=== PATIENT | male | born 1965 | race Caucasian/White ===

== ENCOUNTER 2017-11-28 21:28 | Emergency (ER) | payer OTHER ==
[~2017-11-28] VITALS: Ht 175.3 cm; Wt 154.2 kg
[~2017-11-28 21:28] MED LIST: AMOXICILLIN 50500 MG PO; HYDROCODON-ACE1 EAC7 PO; NOHOMEMEDICATIONS; TRAMADOL 50 MG50 MG PO
[2017-11-28] MEDS ORDERED: [UNRECOGNIZED DRUG - OTHER] (21:34)
[2017-11-28 22:28] LABS: INFLUENZA A ANTIGEN None Detected (None Detect); INFLUENZA B ANTIGEN None Detected (None Detect)
[2017-11-28] MEDS ORDERED: TESSALON PERLE100 MG PO (22:46)
[2017-11-28] MEDS ORDERED: VENTOLIN HFA 1818 GM INH (22:46)
[2017-11-28 23:01] VITALS: BP 170/95
== END 2017-11-28 23:03 | disposition home or self-care (01) ==
LOC: M.ERS 21:28
PROVIDERS: Physician Assistant
DX: J06.9 Acute upper respiratory infection, unspecified (principal); R93.8 Abnormal findings on diagnostic imaging of other specified body structures; F10.99 Alcohol use, unspecified with unspecified alcohol-induced disorder

== ENCOUNTER 2018-12-16 13:30 | Emergency (ER) | payer OTHER ==
[~2018-12-16] VITALS: Ht 175.3 cm; Wt 154.2 kg
[~2018-12-16 13:30] MED LIST changes: +TESSALON PERLE100 MG PO; +VENTOLIN HFA 1818 GM INH; +[UNRECOGNIZED DRUG - OTHER]
[2018-12-16 14:09] LABS: URINE BILIRUBIN NEGATIVE (Negative); URINE BLOOD NEGATIVE (Negative); URINE CLARITY CLEAR; URINE COLOR YELLOW; URINE GLUCOSE-RANDOM NEGATIVE (Negative); URINE KETONES NEGATIVE (Negative); URINE LEUKOCYTES-REFLEX NEGATIVE (Negative); URINE NITRITE-REFLEX NEGATIVE (Negative); URINE PROTEIN NEGATIVE (Negative); URINE UROBILINOGEN 0.2 E.U./dl (0.2-1.0)
[2018-12-16 14:12] LABS: ABSOLUTE BASOPHILS 0.1 thou/uL (0.0-0.2); ABSOLUTE EOSINOPHILS 0.2 thou/uL (0.0-0.7); ABSOLUTE MONOCYTES 0.5 thou/uL (0.0-1.2); ABSOLUTE NEUTROPHILS 5.6 thou/uL (1.6-8.1); BASOPHILS 1.1 %; EOSINOPHILS 2.4 %; HEMATOCRIT 44.7 % (42.0-52.0); HEMOGLOBIN 15.1 gm/dL (14.0-18.0); LYMPHOCYTES 23.9 %; MCH 29.3 pg (26.0-34.0); MCHC 33.9 g/dL (28.0-37.0); MCV 86.7 fL (80.0-100.0); MONOCYTES 6.3 %; MPV 8.4 fl. (7.2-11.1); NUCLEATED RBCS 0 /100WBC; PLATELET COUNT* 267 thou/uL (150-400); POLYS 66.3 %; RBC 5.16 mil/uL (4.50-6.00); RDW-CV 14.9 % (10.5-14.5); WBC 8.4 thou/uL (4.0-11.0)
[2018-12-16 14:19] LABS: ANION GAP 8 mmol/L (7-16); BUN 14 mg/dL (7-18); CALCIUM 9.5 mg/dL (8.5-10.1); CHLORIDE 101 mmol/L (98-107); CO2 28 mmol/L (21-32); GLUCOSE 131 mg/dL (70-99); POTASSIUM 4.1 mmol/L (3.5-5.1); SODIUM 137 mmol/L (136-145)
[2018-12-16 14:27] LABS: ALBUMIN 3.7 g/dL (3.4-5.0); ALKALINE PHOSPHATASE 92 U/L (46-116); LIPASE 105 U/L (73-393); SGOT 17 U/L (15-37); SGPT 41 U/L (30-65); TOTAL BILIRUBIN 0.6 mg/dL (<0.1-1.0); TOTAL PROTEIN 8.4 g/dL (6.4-8.2); TROPONIN-I LEVEL <0.06 ng/mL (<0.06)
[2018-12-16] MEDS ORDERED: ROBAXIN 750 MG750 M1 PO (15:14)
[2018-12-16] MEDS ORDERED: MEDROLDOSEPACK PO (15:14)
[2018-12-16] MEDS ORDERED: NORCO 5-325 TA1 EACH PO (15:14)
[2018-12-16 15:34] VITALS: BP 131/87
--- NOTE | 2018-12-17 13:02 | EKG ---
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
== END 2018-12-16 15:35 | disposition home or self-care (01) ==
LOC: M.ERS 13:30
PROVIDERS: Physician Assistant
DX: R10.9 Unspecified abdominal pain (principal); E66.01 Morbid (severe) obesity due to excess calories; Z68.43 Body mass index [BMI] 50.0-59.9, adult

== ENCOUNTER 2019-04-27 19:40 | Emergency (ER) | payer OTHER ==
[~2019-04-27] VITALS: Ht 175.3 cm; Wt 154.2 kg
[~2019-04-27 19:40] MED LIST changes: +MEDROLDOSEPACK PO; +NORCO 5-325 TA1 EACH PO; +ROBAXIN 750 MG750 M1 PO
[2019-04-27 20:19] LABS: URINE BILIRUBIN NEGATIVE (Negative); URINE BLOOD 3+ (Negative); URINE CLARITY CLEAR; URINE COLOR YELLOW; URINE GLUCOSE-RANDOM NEGATIVE (Negative); URINE KETONES NEGATIVE (Negative); URINE LEUKOCYTES-REFLEX NEGATIVE (Negative); URINE NITRITE-REFLEX NEGATIVE (Negative); URINE PROTEIN NEGATIVE (Negative); URINE UROBILINOGEN 0.2 E.U./dl (0.2-1.0)
[2019-04-27 20:48] LABS: CASTS None Seen /LPF (None Seen); SQUAMOUS 0-3 Few /LPF (0-3)
[2019-04-27 20:49] LABS: BACTERIA-REFLEX None Seen /HPF (None Seen); CRYSTALS None Seen /LPF (None Seen); URINE RBC >20 Many /HPF (0-2); URINE WBC-REFLEX 0-5 Rare /HPF (0-5)
[2019-04-27 21:01] LABS: ABSOLUTE BASOPHILS 0.1 thou/uL (0.0-0.2); ABSOLUTE EOSINOPHILS 0.1 thou/uL (0.0-0.7); ABSOLUTE LYMPHOCYTES 1.5 thou/uL (0.8-5.3); ABSOLUTE NEUTROPHILS 8.4 thou/uL (1.6-8.1); BASOPHILS 0.6 %; EOSINOPHILS 1.3 %; HEMATOCRIT 41.2 % (42.0-52.0); HEMOGLOBIN 13.8 gm/dL (14.0-18.0); LYMPHOCYTES 13.2 %; MCHC 33.5 g/dL (28.0-37.0); MCV 86.8 fL (80.0-100.0); MONOCYTES 9.2 %; MPV 8.5 fl. (7.2-11.1); NUCLEATED RBCS 0 /100WBC; PLATELET COUNT* 223 thou/uL (150-400); POLYS 75.7 %; RBC 4.75 mil/uL (4.50-6.00); RDW-CV 14.8 % (10.5-14.5)
[2019-04-27 21:07] LABS: CALCIUM 8.3 mg/dL (8.5-10.1); CREATININE 1.1 mg/dL (0.6-1.3); POTASSIUM 3.7 mmol/L (3.5-5.1)
[2019-04-27 21:11] LABS: ALBUMIN 3.5 g/dL (3.4-5.0); TOTAL BILIRUBIN 0.8 mg/dL (<0.1-1.0); TOTAL PROTEIN 7.8 g/dL (6.4-8.2)
[2019-04-27] MEDS ORDERED: NAPROSYN500 MG PO ×2 (21:59)
[2019-04-27] MEDS ORDERED: PERCOCET PO ×2 (21:59)
[2019-04-27] MEDS ORDERED: ONDANSETRON HCL4 M2 PO ×2 (21:59)
[2019-04-27] MEDS ORDERED: FLOMAX0.4 MG PO ×2 (21:59)
[2019-04-27 22:35] VITALS: BP 162/78
== END 2019-04-27 22:37 | disposition home or self-care (01) ==
LOC: M.ERS 19:40
PROVIDERS: Nurse Practitioner Family
DX: N20.1 Calculus of ureter (principal); K40.20 Bilateral inguinal hernia, without obstruction or gangrene, not specified as recurrent; E66.01 Morbid (severe) obesity due to excess calories; Z68.43 Body mass index [BMI] 50.0-59.9, adult

== ENCOUNTER 2019-04-29 21:23 | Inpatient (IN) | payer OTHER ==
[~2019-04-29] VITALS: Ht 175.3 cm; Wt 77.1 kg
[~2019-04-29 21:23] MED LIST changes: +FLOMAX0.4 MG PO; +NAPROSYN500 MG PO; +ONDANSETRON HCL4 M2 PO; +PERCOCET PO
[2019-04-29 21:35] VITALS: BP 161/73
[2019-04-29 21:44] LABS: URINE BILIRUBIN NEGATIVE (Negative); URINE BLOOD NEGATIVE (Negative); URINE CLARITY CLEAR; URINE COLOR YELLOW; URINE GLUCOSE-RANDOM NEGATIVE (Negative); URINE KETONES TRACE (Negative); URINE LEUKOCYTES-REFLEX NEGATIVE (Negative); URINE NITRITE-REFLEX NEGATIVE (Negative); URINE PROTEIN NEGATIVE (Negative); URINE SPECIFIC GRAVITY 1.025 (1.005-1.030)
[2019-04-29 21:53] LABS: ABSOLUTE BASOPHILS 0.1 thou/uL (0.0-0.2); ABSOLUTE EOSINOPHILS 0.3 thou/uL (0.0-0.7); ABSOLUTE LYMPHOCYTES 1.5 thou/uL (0.8-5.3); ABSOLUTE MONOCYTES 0.8 thou/uL (0.0-1.2); ABSOLUTE NEUTROPHILS 6.1 thou/uL (1.6-8.1); BASOPHILS 1.1 %; EOSINOPHILS 3.1 %; HEMATOCRIT 38.7 % (42.0-52.0); HEMOGLOBIN 12.9 gm/dL (14.0-18.0); LYMPHOCYTES 17.4 %; MCH 29.1 pg (26.0-34.0); MCHC 33.3 g/dL (28.0-37.0); MCV 87.6 fL (80.0-100.0); MONOCYTES 9.6 %; MPV 8.7 fl. (7.2-11.1); NUCLEATED RBCS 0 /100WBC; PLATELET COUNT* 225 thou/uL (150-400); POLYS 68.8 %; RBC 4.42 mil/uL (4.50-6.00); RDW-CV 14.8 % (10.5-14.5); WBC 8.8 thou/uL (4.0-11.0)
[2019-04-29 22:04] LABS: ANION GAP 9 mmol/L (7-16); BUN 17 mg/dL (7-18); CALCIUM 8.3 mg/dL (8.5-10.1); CHLORIDE 104 mmol/L (98-107); CO2 27 mmol/L (21-32); GLUCOSE 112 mg/dL (70-99); POTASSIUM 4.2 mmol/L (3.5-5.1); SODIUM 140 mmol/L (136-145)
[2019-04-29 22:13] LABS: ALBUMIN 3.5 g/dL (3.4-5.0); ALKALINE PHOSPHATASE 91 U/L (46-116); LIPASE 81 U/L (73-393); SGOT 16 U/L (15-37); SGPT 41 U/L (30-65); TOTAL BILIRUBIN 0.5 mg/dL (<0.1-1.0); TOTAL PROTEIN 7.5 g/dL (6.4-8.2); TROPONIN-I LEVEL <0.06 ng/mL (<0.06)
--- NOTE | 2019-04-29 23:42 | NUR ---
PT MOVED TO ROOM 13 DUE TO BOARDING. HOSPITAL BED PROVIDED FOR PATIENT COMFORT. WILL CONTINUE TO MONITOR.
[2019-04-30 02:42] VITALS: BP 163/91
[2019-04-30 07:17] VITALS: BP 171/74
--- NOTE | 2019-04-30 10:38 | NUR ---
PT GIVEN SANDWICH, PUDDING AND JUICE. REGULAR DIET ORDERED FOR PATIENT. PT IS TO BE NPO AFTER MIDNIGHT.
[2019-04-30 11:13] VITALS: BP 142/71
--- NOTE | 2019-04-30 11:26 | NUR ---
PT GIVEN URINE STRAINER HE STATES HE DOES NOT HAVE ONE HERE IN THE HOSPITAL. TRAINING PROVIDED ON HOW TO STRAIN URINE AND LET NURSE KNOW IF STONE IS SEEN UPON URINATION.
[2019-04-30 14:56] VITALS: BP 184/65
[2019-04-30 15:15] VITALS: BP 147/36
[2019-04-30 20:00] VITALS: BP 163/87
--- NOTE | 2019-04-30 20:54 | NUR ---
PATIENT ADMITTED TO ROOM 109 VIA BED FROM ER. PATIENT'S ASSESSMENT COMPLETED CHARTED. VITALS CHARTED. IV FLUIDS INFUSING. PAIN CONTROLLED BY ORAL AND IV PAIN MEDS. PATIENT UP AD TUCKER, URINE BEING STRAINED. TOLERATING DIET. VSS. TO BE NPO AFTER MIDNIGHT FOR PROCEDURE BY UROLOGY. HOULRY ROUNDING COMPLETED. CALL LIGHT WITHIN REACH. WILL CONTINUE WITH PLAN OF CARE.
[2019-05-01 04:09] LABS: ABSOLUTE EOSINOPHILS 0.3 thou/uL (0.0-0.7); ABSOLUTE LYMPHOCYTES 1.4 thou/uL (0.8-5.3); ABSOLUTE MONOCYTES 0.9 thou/uL (0.0-1.2); ABSOLUTE NEUTROPHILS 7.5 thou/uL (1.6-8.1); BASOPHILS 0.4 %; EOSINOPHILS 2.8 %; HEMOGLOBIN 12.6 gm/dL (14.0-18.0); LYMPHOCYTES 13.4 %; MCH 28.9 pg (26.0-34.0); MCHC 32.4 g/dL (28.0-37.0); MCV 89.3 fL (80.0-100.0); MONOCYTES 9.3 %; NUCLEATED RBCS 0 /100WBC; PLATELET COUNT* 218 thou/uL (150-400); POLYS 74.1 %; RBC 4.37 mil/uL (4.50-6.00); RDW-CV 15.1 % (10.5-14.5); WBC 10.2 thou/uL (4.0-11.0)
[2019-05-01 04:18] LABS: CALCIUM 8.8 mg/dL (8.5-10.1); CREATININE 1.1 mg/dL (0.6-1.3); MAGNESIUM 1.8 mg/dL (1.8-2.4); POTASSIUM 4.3 mmol/L (3.5-5.1)
--- NOTE | 2019-05-01 05:11 | NUR ---
PATIENT HAS REMAINED ALERT AND ORIENTED X 4 THROUGHOUT THE SHIFT AND RESTING AT INTERVALS ON HOURLY ROUNDS. UP INDEPENDENTLY IN THE ROOM. STRAINING URINE. NO STONE. MEDICATED FOR LEFT FLANK PAIN WITH ALTERNATING IV AND PO MEDS TO GOOD EFFECT. CONSENT SIGNED FOR EARLY AM PROCEDURE. NPO AT MIDNIGHT. CONTINUE TO MONITOR.
--- NOTE | 2019-05-01 09:46 | EKG ---
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1965 Requested By: Ag Faith Order Number: [id number] Reading MD: Pan Horta Measurements Intervals [place] Rate: 60 P: 54 [place]: 196 QRS: 45 QRSD: 89 T: 82 QT: 401 QTc: 401 Interpretive Statements Sinus rhythm Compared to ECG 12/16/2018 14:39:05 Atrial premature complex(es) no longer present Electronically Signed On 05-01-2019 9:45:46 CDT by Pan Horta [email or web address] <ELECTRONICALLY SIGNED> By: Pan Horta MD, [facility] 05/01/19 0945 34 34 Pan Horta MD, [facility] /EPI
[2019-05-01 10:15] VITALS: BP 158/79
[2019-05-01 12:11] LABS: BE -1.1 mmol/L (-2 to +3); PCO2 VENOUS 47.3 mmHg (41.0-51.0); PO2 VENOUS 38.5 mmHg (35.0-45.0)
--- NOTE | 2019-05-01 14:08 | NUR ---
SW met with pt and pt to complete initial assessment, introduce self, and SW role. Pt alert, oriented, pleasant. Pt lives at home with ; pt independent with mobility and ADLs. Pt does not anticipate any dc needs at this time.
--- NOTE | 2019-05-01 16:19 | 2DMMODE ---
[place] [address] 2 D/M-MODE ECHOCARDIOGRAM Name: IAN POZO Room: [address] IN [facility]#: [id number] Admission: 04/29/19 Attend Phys: Vaishnavi Jiménez MD Discharge: Date of : 63 Date of Service: 05/01/19 1619 Report #: [id number] THIS REPORT FOR: //name// APPROVED REPORT Study performed: 05/01/2019 13:56:32 EXAM: Comprehensive 2D, Doppler, and color-flow Echocardiogram Patient Location: In-Patient Room #: [facility] Status: routine BSA: 2.59 HR: 57 bpm BP: 158/79 mmHg Rhythm: NSR Other Information Study Quality: Good Indications hypoxia 2D Dimensions IVSd: 12.99 (7-11mm) LVOT Diam: 21.19 (18-24mm) LVDd: 56.28 mm PWd: 12.22 (7-11mm) Ascending Ao: 32.59 (22-36mm) LVDs: 33.12 (25-40mm) Aortic Root: 35.39 mm Volumes Left Atrial Volume (Systole) LA ESV Index: 26.90 mL/m2 Aortic Valve AoV Peak Jewel.: 1.85 m/s AO Peak Gr.: 13.62 mmHg LVOT Max P.57 mmHg AO Mean Gr.: 7.20 mmHg LVOT Mean P.64 mmHg LVOT Max V: 1.63 m/s AO V2 VTI: 35.55 cm LVOT Mean V: 0.97 m/s JORDON (VTI): 2.96 cm2 LVOT V1 VTI: 29.88 cm Mitral Valve E/A Ratio: 1.72 MV Decel. Time: 223.77 ms MV E Max Jewel.: 1.08 m/[place] [address] 2 D/M-MODE ECHOCARDIOGRAM Name: IAN POZO Room: [address] IN ..#: [id number] Admission: 04/29/19 Attend Phys: Vaishnavi Jiménez MD Discharge: Date of : 63 Date of Service: 05/01/19 1619 Report #: [id number] MV PHT: 64.89 ms MVA (PHT): 3.39 cm2 TDI E/Lateral E': 6.35 E/Medial E': 7.20 Medial E' Jewel.: 0.15 m/s Lateral E' Jewel.: 0.17 m/s Pulmonary Valve PV Peak Jewel.: 1.14 m/s PV Peak Gr.: 5.22 mmHg Tricuspid Valve RAP Estimate: 10.00 mmHg TR Peak Gr.: 51.88 mmHg RVSP: 61.00 mmHg PA Pressure: 61.00 mmHg Left Ventricle The left ventricle is normal size. There is normal LV segmental wall motion. There is normal left ventricular wall thickness. Left ventricular systolic function is normal. The left ventricular ejection fraction is within the normal range. LVEF is 55-60%. The left ventricular diastolic function is normal. Right Ventricle The right ventricle is normal size. The right ventricular systolic function is normal. Atria The left atrium size is normal. The right atrium size is normal. Aortic Valve The aortic valve is normal in structure. No aortic regurgitation is present. There is no aortic valvular vegetation. There is no aortic valvular stenosis. Mitral Valve The mitral valve is normal in structure. There is no mitral valve regurgitation noted. There is no evidence of mitral valve vegetations. No evidence of mitral valve stenosis. Tricuspid Valve The tricuspid valve is normal in structure. Trace tricuspid regurgitation. Moderate pulmonary hypertension[place] [address] 2 D/M-MODE ECHOCARDIOGRAM Name: POZOIAN GARCIA Georgette Room: [address] IN [facility]#: [id number] Admission: 04/29/19 Attend Phys: Vaishnavi Jiménez MD Discharge: Date of : 63 Date of Service: 05/01/19 1619 Report #: [id number] The pulmonary valve is normal in structure. There is no pulmonic valvular regurgitation. Great Vessels The aortic root is normal in size. IVC is normal in size and collapses <50% with inspiration. Pericardium There is no pericardial effusion. <Conclusion> LVEF is 55-60%. There is normal LV segmental wall motion. There is no aortic valvular stenosis. No aortic regurgitation is present. Trace tricuspid regurgitation. Moderate pulmonary hypertension. <ELECTRONICALLY SIGNED> By: Pan Horta MD, FACC 05/01/19 1619 1619 1619 Pan Horta MD, FACC /INF
[2019-05-01 16:30] VITALS: BP 152/69
--- NOTE | 2019-05-02 03:57 | NUR ---
ASSESSMENT: PT REMAIN ALERT AND ORIENT TIMES FOUR. UP IN THE CORRIDOR AND IN THE ROOM WITH A STEADY GAIT. PT IS READY TO GO HOME AND DOESN'T WANT TO SPEND ANOTHER NIGHT HERE. HE REFUSES IVF'S AND CAPNOGRAPHY AFTER 15 MINS OF BEING ATTACHED BY RT. PT IS PLEASANT BUT IS READY TO GO HOME. DID C/O FEELING BLOATED AND STAGNANT AIR IN ABD. SIMETHICONE WAS GIVEN. ALSO EXPLAINED THAT SOMETIMES AIR IS PLACED IN THE ABD TO BETTER MOVE THINGS AROUND FOR A BETTER OBSERVATION BY THE DR'S. BLOOD PRESSURE RUNS A BIT ELEVATED. DID NOT WANT HYDRALAZINE PRN.. SLOW PROGRESS TOWARDS DC GOALS. WILL CONTINUE TO MONITOR,.
[2019-05-02 07:40] VITALS: BP 179/88
[2019-05-02 10:34] VITALS: BP 179/88
--- NOTE | 2019-05-02 11:22 | NUR ---
PATIENT AND SPOUSE GIVEN DISCHARGE INSTRUCTIONS AND RETURN TO WORK RELEASE. PATIENT'S IV REMOVED. PATIENT AND SPOUSE VERBALIZED UNDERSTANDING IN REGARDS TO FOLLOW UP APPOINTMENTS. PATIENT AMBULATED OFF NURSING UNIT WITH NURSING STAFF. DISCHARGED TO HOME WITH ALL BELONGINGS.
--- NOTE | 2019-05-03 20:41 | OP ---
[facility] [address] [place] [address] OPERATIVE REPORT Name: IAN POZO Room: [address]#: [id number] Admission: 04/29/19 Attend Phys: Vaishnavi Jiménez MD Discharge: 05/02/19 Date of : 63 Report #: [id number] THIS REPORT FOR: //name// CC: Polo Jiménez DATE OF SERVICE: 05/01/2019 PREOPERATIVE DIAGNOSIS: Left distal ureteral calculus. POSTOPERATIVE DIAGNOSIS: Left distal ureteral calculus. PROCEDURES PERFORMED: 1. Cystoscopy with left retrograde pyelogram. 2. Left ureteroscopy with laser lithotripsy. 3. Basket stone extraction. 4. Left 6 x 26 double-J ureteral stent placement. SURGEON: Ag Faith M.D. ANESTHESIA: General endotracheal. BRIEF HISTORY: The patient is a 54-year-old male who developed left flank and abdominal pain. He presented to the [facility] Emergency Room where noncontrast CT imaging demonstrated the presence of a 5-6 mm left distal ureteral calculus. He was discharged home on medical expulsive therapy, but returned to the ER secondary to persistent pain. Given the above, discussion was undertaken regarding management options and the patient elected ureteroscopy with laser lithotripsy, stone retrieval and stent placement. The risks of the procedure including the risks of bleeding, infection, damage to surrounding structures, need for additional procedures, and anesthetic risks were discussed with the patient and he wished to proceed. PROCEDURE IN DETAIL: The risks and benefits of surgery were discussed with the patient and he wished to proceed. Informed consent was obtained and the patient was transferred to the operating room where he was laid supine on the operating room table. After the induction of adequate general endotracheal anesthesia and the administration of appropriate preoperative antibiotics, the patient's legs were placed in a modified dorsal lithotomy position, taking care to pad all pressure points and avoid any hyperextension or hyperflexion of his joints. The patient's genitalia were prepped and draped in the usual sterile fashion. A timeout was then performed to ensure correct patient and procedure. At this time, a 22-Filipino cystoscope sheath with a 30-degree lens was lubricated and advanced under direct vision and irrigation into the anterior urethra. There were no anterior urethral abnormalities identified. As the prostatic urethra was approached, there was moderate lateral [place] [address] OPERATIVE REPORT Name: IAN POZO Room: [address] IN [facility]#: [id number] Admission: 04/29/19 Attend Phys: Vaishnavi Jiménez MD Discharge: 05/02/19 Date of : 63 Report #: [id number] median lobe hypertrophy. The cystoscope was advanced into the bladder where it was disarticulated and the bladder was drained. Cystoscopy was performed under direct vision and irrigation with both a 30 degree and 70 degree lens. The patient's ureteral orifices were found to be in their normal anatomic location. Systematic panendoscopy revealed no gross bladder wall pathology. There were no papillary bladder tumors or suspicious mucosal lesions identified. At this time, a 5-Filipino Pollack catheter was placed into the patient's left ureteral orifice and a left retrograde pyelogram was performed. Contrast could be seen filling the distal ureter, a distance of approximately 1-2 cm at which point there was a radiopaque filling defect consistent with the calculus previously observed on CT imaging. Contrast progressed beyond the stone and filled a moderately ectatic mid and proximal ureter. At this time, a 0.038 ZIPwire was advanced through the Pollack catheter and beyond the calculus until it was seen to coil within the left collecting system under fluoroscopy. The Pollack catheter and cystoscope were removed and the wire was clamped to the drape as a safety wire. A rigid ureteroscope was then advanced under direct vision and irrigation through the urethra and into the bladder. Under direct vision and pressure flow irrigation, an attempt was made at advancing the ureteroscope into the left ureter. The left UO was somewhat atretic and would not permit advancement across into the distal ureter. As such, the ureteroscope was removed. The inner cannula of an 11/13 navigator access sheath was advanced alone over the wire under fluoroscopic guidance just into the left UO. In this manner a gentle dilation was performed. The inner cannula of the access sheath was removed and the wire was reclamped to the drape. The rigid ureteroscope was then able to be easily advanced across the left UO and into the distal ureter where a smooth stone was encountered. A 365 micron laser fiber was advanced through the ureteroscope and laser lithotripsy was performed on the calculus. The calculus was relatively hard, but did dust nicely. After approximately half the stone had been dusted, the remainder of the stone broke into approximately 4-5 smaller fragments, which were then able to be grasped and removed utilizing a 0 tip nitinol basket. After all stone fragments had been cleared of the distal ureter, the ureteroscope was advanced just beyond the iliac vessels and was withdrawn. There were no basketable stone fragments remaining. Prior to withdrawing the ureteroscope entirely, a retrograde pyelogram was repeated by injecting contrast through the ureteroscope. This demonstrated patency and integrity of the ureter and collecting system and delineated the collecting system for stent placement. The ureteroscope was removed and a 6 x 26 double-J ureteral stent was advanced over the wire and into position using a metal-tipped pusher. The wire was withdrawn, deploying the stent. The left collecting system was relatively decompressed and the stent was seen to take on an S-shaped configuration within the upper pole under fluoroscopic vision. The cystoscope was reinserted into the bladder and a good coil was noted in the bladder. The cystoscope was disarticulated and the bladder was drained. In this manner, the stone fragments, which had been dropped into the bladder were evacuated out and passed off the table for pathologic analysis. The cystoscope was removed. [place] [address] OPERATIVE REPORT Name: IAN POZO Room: [address]#: [id number] Admission: 04/29/19 Attend Phys: Vaishnavi Jiménez MD Discharge: 05/02/19 Date of : 63 Report #: [id number] anesthetized with 2% lidocaine jelly and a B and O suppository was placed per rectum. The patient was then returned to a supine position, awakened from anesthesia, and transferred to the postoperative care unit in stable condition. The patient tolerated the procedure well. COMPLICATIONS: None. ESTIMATED BLOOD LOSS: Minimal. INTRAVENOUS FLUIDS: Crystalloid. DRAINS: Left 6 x 26 double-J ureteral stent. SPECIMENS: Left distal ureteral calculus fragments. FINDINGS: 1. Normal anterior urethra. 2. Moderate bilobar prostatic hyperplasia without significant visual obstruction. 3. No gross bladder wall pathology. No papillary bladder tumors or suspicious mucosal lesions identified. 4. Left retrograde pyelogram demonstrating a left distal ureteral calculus. 5. Left ureteroscopy revealing a left distal ureteral calculus, fragmented with laser lithotripsy and removed. 6. Left 6 x 26 double-J ureteral stent in good position by fluoroscopy and direct vision at the conclusion of the procedure. <ELECTRONICALLY SIGNED> By: Ag Faith MD 05/03/19 2041 0831 0917Ryrisa Faith MD /nt
== END 2019-05-02 11:15 | disposition home or self-care (01) | DRG 659 ==
LOC: M.ERS 21:23 → M.ORTHSURG 22:13 → M.TBA-ER 22:13 → M.ORTHSURG 04-30 15:22
PROVIDERS: Internal Medicine; Physician Assistant; ADMIT Family Medicine
PROC: 0T778DZ Dilation of Left Ureter with Intraluminal Device, Via Natural or Artificial Opening Endoscopic (ICD-10-PCS; principal; 2019-05-01)
PROC: 0TC78ZZ Extirpation of Matter from Left Ureter, Via Natural or Artificial Opening Endoscopic (ICD-10-PCS; principal; 2019-05-01)
PROC: BT1F1ZZ Fluoroscopy of Left Kidney, Ureter and Bladder using Low Osmolar Contrast (ICD-10-PCS; principal; 2019-05-01)
PROC: 5A09357 Assistance with Respiratory Ventilation, Less than 24 Consecutive Hours, Continuous Positive Airway Pressure (ICD-10-PCS; principal; 2019-05-01)
DX: N13.2 Hydronephrosis with renal and ureteral calculous obstruction (principal); J96.01 Acute respiratory failure with hypoxia; J96.02 Acute respiratory failure with hypercapnia; I50.31 Acute diastolic (congestive) heart failure; E66.01 Morbid (severe) obesity due to excess calories; K59.00 Constipation, unspecified; G47.33 Obstructive sleep apnea (adult) (pediatric); I11.0 Hypertensive heart disease with heart failure; Z68.25 Body mass index [BMI] 25.0-25.9, adult

== ENCOUNTER → 2019-06-23 | Outpatient (CLI) | payer OTHER ==
--- NOTE | 2019-06-27 18:22 | SLEEP ---
[address] [address] SLEEP STUDY REPORT Name: IAN POZO Room: [facility]#: [id number] Admission: 06/23/19 Attend Phys: Davey Wood Discharge: Date of : 63 Report #: [id number] THIS REPORT FOR: //name// CC: Polo Mac DO This study has been reviewed in its entirety by a board certified sleep specialist DATE OF SERVICE: 06/23/2019 SLEEP STUDY ATTENDING PHYSICIAN: Vicente Mac DO FINDINGS: The patient is a 54-year-old who weighs 340 pounds with a BMI of 60.2. The patient's [place] score was 12. The patient underwent diagnostic sleep study performed at [facility]. During the night study, the patient spent 408 minutes in bed, but slept for only 78 minutes with a very low sleep efficiency of 19%. Sleep latency was 41.5 minutes with an absent REM sleep. Overall, sleep architecture showed increased stage 1 and stage 2 sleep with absent slow wave and absent REM sleep. During the night study, the patient had 123 apneas including 91 obstructive, 17 mixed and 15 central apneas. The patient had 9 hypopneas. The patient's apnea-hypopnea index for the entire night was 101 per hour. REM sleep was not observed and a supine AHI was 68 per hour. Nocturnal oximetry study revealed an average oxygen saturation of 95% with a lowest of 84%. 2.5 minutes were spent in oxygen saturation of less than 89%. EKG monitoring revealed an average heart rate of 51 beats per minute. No sustained arrhythmias observed. PLMS were seen at an index of 1. So at an index of 90 per hour and 23 per hour caused EEG arousals. Due to limited sleep of 78%. There was not enough time to initiate CPAP. IMPRESSION: 1. Severe sleep apnea-hypopnea syndrome at an AHI of 101 per hour. 2. Very poor sleep architecture with significantly reduced sleep efficiency of 19%. The patient only slept 78 minutes. There was sleep onset [place] [address] SLEEP STUDY REPORT Name: IAN POZO Room: [facility]#: [id number] Admission: 06/23/19 Attend Phys: Davey Wood Discharge: Date of : 63 Report #: [id number] 3. No significant nocturnal hypoxia. 4. Severe periodic limb movements of sleep. RECOMMENDATIONS: 1. The patient should return to the sleep lab for CPAP titration. 2. The patient's insomnia should be further evaluated and treated. 3. Once the patient is optimally treated with CPAP, then follow up in 4-6 weeks to assess compliance with CPAP and to document clinical improvement. 4. Weight loss is strongly advised. 5. Avoid SHERIFF SERGEANT depressants. 6. Cautioned regarding driving or operating heavy machinery until symptoms of sleep apnea resolve with the use of CPAP. 7. PLMS can be treated with dopaminergic agonist agents. The patient should also be further evaluated for symptoms of restless legs during the day. <ELECTRONICALLY SIGNED> By: Serjio Blandon MD 06/27/19 1822 1726 1805Asolomon Blandon MD /nt
== END ==
LOC: M.SLEEPLAB 20:55
DX: G47.33 Obstructive sleep apnea (adult) (pediatric) (principal); G47.30 Sleep apnea, unspecified; E66.01 Morbid (severe) obesity due to excess calories; Z68.43 Body mass index [BMI] 50.0-59.9, adult; I11.0 Hypertensive heart disease with heart failure; I50.30 Unspecified diastolic (congestive) heart failure

== ENCOUNTER 2019-07-10 20:11 | Emergency (ER) | payer OTHER ==
[~2019-07-10] VITALS: Ht 175.3 cm; Wt 155.1 kg
[2019-07-10] MEDS ORDERED: ZESTRIL5 MG PO (20:21)
[2019-07-10] MEDS ORDERED: MEDROLDOSEPACK PO (21:16)
[2019-07-10] MEDS ORDERED: VENTOLIN HFA 1818 GM INH (21:16)
[2019-07-10] MEDS ORDERED: TESSALON PERLE100 MG PO (21:16)
[2019-07-10] MEDS ORDERED: AZITHROMYCIN500 MG PO (21:16)
[2019-07-10 21:27] VITALS: BP 146/67
== END 2019-07-10 21:29 | disposition home or self-care (01) ==
LOC: M.ERS 20:11
DX: J20.9 Acute bronchitis, unspecified (principal); H65.01 Acute serous otitis media, right ear; I10 Essential (primary) hypertension; G47.30 Sleep apnea, unspecified; E66.01 Morbid (severe) obesity due to excess calories; Z68.43 Body mass index [BMI] 50.0-59.9, adult; Z98.890 Other specified postprocedural states; Z87.442 Personal history of urinary calculi

== ENCOUNTER 2020-04-26 15:08 | Emergency (ER) | payer OTHER ==
[~2020-04-26] VITALS: Ht 175.3 cm; Wt 158.8 kg
[~2020-04-26 15:08] MED LIST changes: +AZITHROMYCIN500 MG PO; +ZESTRIL5 MG PO
[2020-04-26 15:48] LABS: URINE BILIRUBIN NEGATIVE (Negative); URINE BLOOD NEGATIVE (Negative); URINE CLARITY CLEAR; URINE COLOR YELLOW; URINE GLUCOSE-RANDOM TRACE (Negative); URINE KETONES NEGATIVE (Negative); URINE LEUKOCYTES-REFLEX NEGATIVE (Negative); URINE NITRITE-REFLEX NEGATIVE (Negative); URINE PROTEIN NEGATIVE (Negative)
[2020-04-26 16:03] LABS: ABSOLUTE LYMPHOCYTES 1.2 thou/uL (0.8-5.3); MPV 8.5 fl. (7.2-11.1); POLYS 73.1 %
[2020-04-26 16:05] LABS: ABSOLUTE BASOPHILS 0.1 thou/uL (0.0-0.2); ABSOLUTE EOSINOPHILS 0.2 thou/uL (0.0-0.7); ABSOLUTE MONOCYTES 0.5 thou/uL (0.0-1.2); ABSOLUTE NEUTROPHILS 5.4 thou/uL (1.6-8.1); BASOPHILS 1.3 %; CREATININE 0.9 mg/dL (0.6-1.3); EOSINOPHILS 2.5 %; HEMATOCRIT 38.8 % (42.0-52.0); HEMOGLOBIN 13.3 gm/dL (14.0-18.0); LYMPHOCYTES 15.9 %; MCH 29.5 pg (26.0-34.0); MCHC 34.2 g/dL (28.0-37.0); MCV 86.1 fL (80.0-100.0); MONOCYTES 7.2 %; NUCLEATED RBCS 0 /100WBC; PLATELET COUNT* 235 thou/uL (150-400); POTASSIUM 3.9 mmol/L (3.5-5.1); RDW-CV 15.1 % (10.5-14.5); WBC 7.4 thou/uL (4.0-11.0)
[2020-04-26 16:09] LABS: ALBUMIN 3.1 g/dL (3.4-5.0); TOTAL BILIRUBIN 0.5 mg/dL (<0.1-1.0); TOTAL PROTEIN 7.3 g/dL (6.4-8.2)
[2020-04-26] MEDS ORDERED: IBUPROFEN 800800 M1 PO (16:40)
[2020-04-26] MEDS ORDERED: NORCO 5-325 TA1 EAC1 PO (16:40)
[2020-04-26 16:48] VITALS: BP 176/86
--- NOTE | 2020-04-28 08:37 | EKG ---
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: [facility] : 1965 Requested By: Kenna Streeter Order Number: [id number] MD: Bon Jules Measurements Intervals [place] Rate: 64 P: 44 CT: 196 QRS: 44 QRSD: 87 T: 79 QT: 387 QTc: 400 Interpretive Statements Sinus rhythm Baseline wander in lead(s) V1,V2 Compared to ECG 04/30/2019 22:35:11 No significant changes Electronically Signed On 04-28-2020 8:37:17 CDT by Bon Jules [email or web address] <ELECTRONICALLY SIGNED> By: Bon Jules MD, [facility] 04/28/20 0837 1555 1555 Bon Jules MD, [facility] /EPI
== END 2020-04-26 16:49 | disposition home or self-care (01) ==
LOC: M.ERS 15:08
PROVIDERS: Nurse Practitioner Family
DX: N20.0 Calculus of kidney (principal); G47.30 Sleep apnea, unspecified; E66.01 Morbid (severe) obesity due to excess calories; Z68.43 Body mass index [BMI] 50.0-59.9, adult; Z87.442 Personal history of urinary calculi

== ENCOUNTER 2020-05-01 15:01 | Emergency (ER) | payer OTHER ==
[~2020-05-01] VITALS: Ht 175.3 cm; Wt 158.8 kg
[~2020-05-01 15:01] MED LIST changes: +IBUPROFEN 800800 M1 PO; +NORCO 5-325 TA1 EAC1 PO
[2020-05-01] MEDS ORDERED: NORCO 5-325 TA1 EAC1 PO (16:08)
[2020-05-01] MEDS ORDERED: IBUPROFEN 800800 M1 PO (16:08)
[2020-05-01 16:43] VITALS: BP 116/51
== END 2020-05-01 16:44 | disposition home or self-care (01) ==
LOC: M.ERS 15:01
DX: S20.211A Contusion of right front wall of thorax, initial encounter (principal); E66.01 Morbid (severe) obesity due to excess calories; G47.30 Sleep apnea, unspecified; I10 Essential (primary) hypertension; Z79.899 Other long term (current) drug therapy; Z68.43 Body mass index [BMI] 50.0-59.9, adult; X50.0XXA Overexertion from strenuous movement or load, initial encounter; Y93.89 Activity, other specified; Y92.89 Other specified places as the place of occurrence of the external cause; Y99.8 Other external cause status

== ENCOUNTER 2020-06-28 13:34 | Emergency (ER) | payer OTHER | END 2020-06-28 14:23 | disposition left against medical advice (07) | LOC: M.ERS 13:34 | DX: Z53.21 Procedure and treatment not carried out due to patient leaving prior to being seen by health care provider (principal) ==

== ENCOUNTER 2020-07-19 13:39 | Observation (INO) | payer OTHER ==
[~2020-07-19] VITALS: Ht 175.3 cm; Wt 154.2 kg
[2020-07-19] MEDS ORDERED: METFORMIN HCL500 M3 PO (13:52)
[2020-07-19] MEDS ORDERED: PRINIVIL40 MG PO (13:53)
[2020-07-19 15:40] LABS: ABSOLUTE BASOPHILS 0.1 thou/uL (0.0-0.2); ABSOLUTE EOSINOPHILS 0.2 thou/uL (0.0-0.7); ABSOLUTE LYMPHOCYTES 1.5 thou/uL (0.8-5.3); ABSOLUTE MONOCYTES 0.5 thou/uL (0.0-1.2); ABSOLUTE NEUTROPHILS 5.3 thou/uL (1.6-8.1); BASOPHILS 0.7 %; EOSINOPHILS 2.4 %; HEMATOCRIT 41.2 % (42.0-52.0); HEMOGLOBIN 14.1 gm/dL (14.0-18.0); LYMPHOCYTES 20.1 %; MCH 29.3 pg (26.0-34.0); MCHC 34.3 g/dL (28.0-37.0); MCV 85.5 fL (80.0-100.0); MPV 8.2 fl. (7.2-11.1); NUCLEATED RBCS 0 /100WBC; PLATELET COUNT* 232 thou/uL (150-400); POLYS 69.8 %; RBC 4.82 mil/uL (4.50-6.00); RDW-CV 15.7 % (10.5-14.5); WBC 7.6 thou/uL (4.0-11.0)
[2020-07-19 15:50] LABS: CALCIUM 8.1 mg/dL (8.5-10.1); CREATININE 0.9 mg/dL (0.6-1.3); POTASSIUM 4.3 mmol/L (3.5-5.1)
[2020-07-19 15:56] LABS: PROTIME 10.5 Seconds (9.20-11.50)
[2020-07-19 16:02] LABS: ALBUMIN 3.4 g/dL (3.4-5.0); CK-MB MASS 2.5 ng/mL (<0.5-3.6); MAGNESIUM 1.9 mg/dL (1.8-2.4); TOTAL BILIRUBIN 0.5 mg/dL (<0.1-1.0)
[2020-07-19 17:15] VITALS: BP 152/70
--- NOTE | 2020-07-19 17:22 | EKG ---
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
[2020-07-19 17:45] VITALS: BP 133/58
== END 2020-07-19 21:00 | disposition left against medical advice (07) ==
LOC: M.ERS 13:39 → M.TBA-ER 15:55 → M.2W 15:55
PROVIDERS: Family Medicine; ADMIT Internal Medicine; ATTEND Internal Medicine
DX: U07.1 COVID-19 (principal); R07.89 Other chest pain; I10 Essential (primary) hypertension; G47.30 Sleep apnea, unspecified; E66.01 Morbid (severe) obesity due to excess calories; Z68.43 Body mass index [BMI] 50.0-59.9, adult; Z87.442 Personal history of urinary calculi; Z79.899 Other long term (current) drug therapy

== ENCOUNTER 2020-08-08 00:04 | Emergency (ER) | payer OTHER ==
[~2020-08-08] VITALS: Ht 175.3 cm; Wt 158.8 kg
[~2020-08-08 00:04] MED LIST changes: +METFORMIN HCL500 M3 PO; +PRINIVIL40 MG PO
[2020-08-08 00:23] LABS: URINE BILIRUBIN NEGATIVE (Negative); URINE BLOOD NEGATIVE (Negative); URINE CLARITY CLEAR; URINE COLOR YELLOW; URINE GLUCOSE-RANDOM NEGATIVE (Negative); URINE KETONES TRACE (Negative); URINE LEUKOCYTES-REFLEX NEGATIVE (Negative); URINE NITRITE-REFLEX NEGATIVE (Negative); URINE PROTEIN NEGATIVE (Negative); URINE SPECIFIC GRAVITY 1.025 (1.005-1.030)
[2020-08-08 00:35] LABS: ABSOLUTE BASOPHILS 0.1 thou/uL (0.0-0.2); ABSOLUTE EOSINOPHILS 0.3 thou/uL (0.0-0.7); ABSOLUTE LYMPHOCYTES 2.1 thou/uL (0.8-5.3); ABSOLUTE MONOCYTES 0.8 thou/uL (0.0-1.2); ABSOLUTE NEUTROPHILS 5.5 thou/uL (1.6-8.1); BASOPHILS 1.2 %; EOSINOPHILS 3.2 %; HEMATOCRIT 40.3 % (42.0-52.0); HEMOGLOBIN 13.7 gm/dL (14.0-18.0); LYMPHOCYTES 23.8 %; MCH 29.1 pg (26.0-34.0); MCHC 33.9 g/dL (28.0-37.0); MCV 85.9 fL (80.0-100.0); MONOCYTES 9.3 %; MPV 8.4 fl. (7.2-11.1); NUCLEATED RBCS 0 /100WBC; PLATELET COUNT* 250 thou/uL (150-400); POLYS 62.5 %; RDW-CV 15.8 % (10.5-14.5); WBC 8.7 thou/uL (4.0-11.0)
[2020-08-08] MEDS ORDERED: FLEXERIL PO (00:35)
[2020-08-08] MEDS ORDERED: NORCO 5-325 TA1 EAC2 PO (00:35)
[2020-08-08 00:41] LABS: CALCIUM 8.5 mg/dL (8.5-10.1); CREATININE 1.1 mg/dL (0.6-1.3); POTASSIUM 4.1 mmol/L (3.5-5.1)
[2020-08-08 00:42] LABS: ALBUMIN 3.3 g/dL (3.4-5.0)
[2020-08-08 00:56] LABS: TOTAL BILIRUBIN 0.4 mg/dL (<0.1-1.0); TOTAL PROTEIN 7.8 g/dL (6.4-8.2)
[2020-08-08 01:44] VITALS: BP 136/89
== END 2020-08-08 01:45 | disposition home or self-care (01) ==
LOC: M.ERS 00:04
PROVIDERS: Family Medicine
DX: M54.5 Low back pain (principal); E66.01 Morbid (severe) obesity due to excess calories; Z87.442 Personal history of urinary calculi; Z79.899 Other long term (current) drug therapy

== ENCOUNTER 2020-10-20 21:37 | Emergency (ER) | payer OTHER ==
[~2020-10-20] VITALS: Ht 175.3 cm; Wt 158.8 kg
[~2020-10-20 21:37] MED LIST changes: +FLEXERIL PO; +NORCO 5-325 TA1 EAC2 PO
[2020-10-20] MEDS ORDERED: OZEMPIC0.25 MG/0. SQ (21:48)
[2020-10-20 22:04] LABS: URINE BILIRUBIN NEGATIVE (Negative); URINE BLOOD NEGATIVE (Negative); URINE CLARITY CLEAR; URINE COLOR YELLOW; URINE GLUCOSE-RANDOM NEGATIVE (Negative); URINE KETONES TRACE (Negative); URINE LEUKOCYTES-REFLEX NEGATIVE (Negative); URINE NITRITE-REFLEX NEGATIVE (Negative); URINE PROTEIN NEGATIVE (Negative); URINE SPECIFIC GRAVITY >= 1.030 (1.005-1.030)
[2020-10-20 22:34] LABS: ABSOLUTE BASOPHILS 0.1 thou/uL (0.0-0.2); ABSOLUTE EOSINOPHILS 0.4 thou/uL (0.0-0.7); ABSOLUTE LYMPHOCYTES 1.7 thou/uL (0.8-5.3); ABSOLUTE MONOCYTES 0.6 thou/uL (0.0-1.2); ABSOLUTE NEUTROPHILS 6.1 thou/uL (1.6-8.1); BASOPHILS 1.4 %; EOSINOPHILS 4.2 %; HEMATOCRIT 42.5 % (42.0-52.0); HEMOGLOBIN 14.4 gm/dL (14.0-18.0); MCH 29.3 pg (26.0-34.0); MCV 86.2 fL (80.0-100.0); MONOCYTES 6.7 %; MPV 8.5 fl. (7.2-11.1); NUCLEATED RBCS 0 /100WBC; PLATELET COUNT* 250 thou/uL (150-400); POLYS 68.7 %; RBC 4.93 mil/uL (4.50-6.00); RDW-CV 15.4 % (10.5-14.5); WBC 8.8 thou/uL (4.0-11.0)
[2020-10-20 22:41] LABS: CALCIUM 8.3 mg/dL (8.5-10.1); CREATININE 0.9 mg/dL (0.6-1.3); POTASSIUM 3.9 mmol/L (3.5-5.1)
[2020-10-20 22:49] LABS: AMP/METHAMP Negative (Negative); BARBITURATES Negative (Negative); BENZODIAZEPINES Negative (Negative); COCAINE Negative (Negative); METHADONE Negative (Negative); OPIATES Negative (Negative); PCP Negative (Negative); THC POSITIVE (Negative)
[2020-10-21] MEDS ORDERED: FLEXERIL PO (00:14)
[2020-10-21] MEDS ORDERED: HYDROCODON-ACE1 EAC8 PO (00:14)
[2020-10-21 00:30] VITALS: BP 151/68
== END 2020-10-21 00:30 | disposition home or self-care (01) ==
LOC: M.ERS 21:37
PROVIDERS: Emergency Medicine
DX: M54.5 Low back pain (principal); G47.30 Sleep apnea, unspecified; E66.01 Morbid (severe) obesity due to excess calories; Z68.43 Body mass index [BMI] 50.0-59.9, adult; Z87.442 Personal history of urinary calculi; Z79.899 Other long term (current) drug therapy

== ENCOUNTER 2020-11-15 13:57 | Emergency (ER) | payer OTHER ==
[~2020-11-15] VITALS: Ht 175.3 cm; Wt 154.2 kg
[~2020-11-15 13:57] MED LIST changes: +HYDROCODON-ACE1 EAC8 PO; +OZEMPIC0.25 MG/0. SQ
[2020-11-15 14:24] LABS: URINE BILIRUBIN NEGATIVE (Negative); URINE BLOOD NEGATIVE (Negative); URINE CLARITY CLEAR; URINE COLOR YELLOW; URINE GLUCOSE-RANDOM NEGATIVE (Negative); URINE KETONES NEGATIVE (Negative); URINE LEUKOCYTES-REFLEX NEGATIVE (Negative); URINE NITRITE-REFLEX NEGATIVE (Negative); URINE PROTEIN NEGATIVE (Negative); URINE SPECIFIC GRAVITY 1.025 (1.005-1.030)
[2020-11-15] MEDS ORDERED: HYDROCODON-ACE1 EAC7 PO (14:43)
[2020-11-15] MEDS ORDERED: FLEXERIL PO (14:43)
[2020-11-15 15:01] VITALS: BP 178/87
== END 2020-11-15 15:02 | disposition home or self-care (01) ==
LOC: M.ERS 13:57
PROVIDERS: Family Medicine
DX: M54.9 Dorsalgia, unspecified (principal); E11.9 Type 2 diabetes mellitus without complications; I10 Essential (primary) hypertension; Z79.899 Other long term (current) drug therapy

== ENCOUNTER 2020-12-30 13:38 | Emergency (ER) | payer OTHER ==
[~2020-12-30] VITALS: Ht 175.3 cm; Wt 163.3 kg
[2020-12-30] MEDS ORDERED: HYDROCODON-ACE1 EAC7 PO (14:28)
[2020-12-30 15:12] VITALS: BP 184/91
== END 2020-12-30 15:13 | disposition home or self-care (01) ==
LOC: M.ERS 13:38
DX: M25.561 Pain in right knee (principal); M25.562 Pain in left knee; G47.30 Sleep apnea, unspecified; E11.9 Type 2 diabetes mellitus without complications; E66.01 Morbid (severe) obesity due to excess calories; Z68.43 Body mass index [BMI] 50.0-59.9, adult; Z87.442 Personal history of urinary calculi

== ENCOUNTER 2021-01-13 13:28 | Emergency (ER) | payer OTHER ==
[~2021-01-13] VITALS: Ht 152.4 cm; Wt 163.3 kg
[2021-01-13] MEDS ORDERED: LISINOPRIL20 MG PO (13:36)
[2021-01-13 13:58] LABS: ABSOLUTE EOSINOPHILS 0.2 thou/uL (0.0-0.7); ABSOLUTE LYMPHOCYTES 1.5 thou/uL (0.8-5.3); ABSOLUTE MONOCYTES 0.6 thou/uL (0.0-1.2); ABSOLUTE NEUTROPHILS 5.1 thou/uL (1.6-8.1); BASOPHILS 0.2 %; HEMATOCRIT 39.4 % (42.0-52.0); HEMOGLOBIN 13.1 gm/dL (14.0-18.0); LYMPHOCYTES 19.8 %; MCH 28.6 pg (26.0-34.0); MCHC 33.3 g/dL (28.0-37.0); MCV 85.7 fL (80.0-100.0); MPV 8.5 fl. (7.2-11.1); NUCLEATED RBCS 0 /100WBC; PLATELET COUNT* 223 thou/uL (150-400); RBC 4.61 mil/uL (4.50-6.00); RDW-CV 15.2 % (10.5-14.5); WBC 7.4 thou/uL (4.0-11.0)
[2021-01-13 14:05] LABS: CREATININE 0.8 mg/dL (0.6-1.3)
[2021-01-13 14:07] LABS: APTT 24.2 Seconds (25.0-31.3); INR 0.9; PROTIME 10.1 Seconds (9.20-11.50)
[2021-01-13 14:17] LABS: ALBUMIN 3.2 g/dL (3.4-5.0); MAGNESIUM 1.9 mg/dL (1.8-2.4); TOTAL BILIRUBIN 0.4 mg/dL (<0.1-1.0); TOTAL PROTEIN 7.5 g/dL (6.4-8.2)
--- NOTE | 2021-01-13 15:17 | EKG ---
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 : 1965 Requested By: Gil Dudley Order Number: [id number] MD: Garrett Feliciano Measurements Intervals [place] Rate: 75 P: 24 MT: 210 QRS: 54 QRSD: 91 T: 58 QT: 386 QTc: 432 Interpretive Statements Sinus rhythm with atrial bigeminy Prolonged MT interval Baseline wander in lead(s) V2 Compared to ECG 07/19/2020 13:49:22 First degree AV block now present Atrial bigeminy is noted Electronically Signed On 01-13-2021 15:17:20 REGULATION SUPERVISOR by Garrett Feliicano [email or web address] <ELECTRONICALLY SIGNED> By: Garrett Feliciano MD, [facility] 01/13/21 1517 1333 1333 Garrett Feliciano MD, [facility] /EPI
[2021-01-13 16:07] VITALS: BP 156/89
== END 2021-01-13 16:07 | disposition home or self-care (01) ==
LOC: M.ERS 13:28
PROVIDERS: Family Medicine
DX: R07.89 Other chest pain (principal); E11.9 Type 2 diabetes mellitus without complications; G47.30 Sleep apnea, unspecified; E66.01 Morbid (severe) obesity due to excess calories; Z68.45 Body mass index [BMI] 70 or greater, adult; Z87.442 Personal history of urinary calculi

== ENCOUNTER 2021-02-08 13:33 | Emergency (ER) | payer OTHER ==
[~2021-02-08] VITALS: Ht 175.3 cm; Wt 154.2 kg
[~2021-02-08 13:33] MED LIST changes: +LISINOPRIL20 MG PO
[2021-02-08] MEDS ORDERED: OZEMPIC0.25 MG/0. SUBQ (13:51)
[2021-02-08 13:53] LABS: URINE BILIRUBIN NEGATIVE (Negative); URINE BLOOD NEGATIVE (Negative); URINE CLARITY CLEAR; URINE COLOR YELLOW; URINE GLUCOSE-RANDOM NEGATIVE (Negative); URINE KETONES NEGATIVE (Negative); URINE LEUKOCYTES-REFLEX NEGATIVE (Negative); URINE NITRITE-REFLEX NEGATIVE (Negative); URINE PROTEIN NEGATIVE (Negative); URINE SPECIFIC GRAVITY 1.025 (1.005-1.030); URINE UROBILINOGEN 0.2 E.U./dl (0.2-1.0)
[2021-02-08 14:09] LABS: ABSOLUTE BASOPHILS 0.1 thou/uL (0.0-0.2); ABSOLUTE EOSINOPHILS 0.2 thou/uL (0.0-0.7); ABSOLUTE LYMPHOCYTES 1.3 thou/uL (0.8-5.3); ABSOLUTE MONOCYTES 0.5 thou/uL (0.0-1.2); ABSOLUTE NEUTROPHILS 5.3 thou/uL (1.6-8.1); EOSINOPHILS 2.5 %; HEMOGLOBIN 13.9 gm/dL (14.0-18.0); LYMPHOCYTES 17.8 %; MCH 28.5 pg (26.0-34.0); MCHC 33.1 g/dL (28.0-37.0); MCV 86.4 fL (80.0-100.0); MPV 8.2 fl. (7.2-11.1); NUCLEATED RBCS 0 /100WBC; PLATELET COUNT* 233 thou/uL (150-400); POLYS 71.7 %; RBC 4.86 mil/uL (4.50-6.00); RDW-CV 15.7 % (10.5-14.5); WBC 7.4 thou/uL (4.0-11.0)
[2021-02-08 14:27] LABS: CALCIUM 8.5 mg/dL (8.5-10.1); CREATININE 0.8 mg/dL (0.6-1.3); POTASSIUM 4.3 mmol/L (3.5-5.1)
[2021-02-08] MEDS ORDERED: ZANAFLEX4 MG PO ×2 (14:45→14:47)
[2021-02-08 14:55] VITALS: BP 177/95
== END 2021-02-08 14:56 | disposition home or self-care (01) ==
LOC: M.ERS 13:33
PROVIDERS: Nurse Practitioner
DX: R10.9 Unspecified abdominal pain (principal); I10 Essential (primary) hypertension; E11.9 Type 2 diabetes mellitus without complications; E66.01 Morbid (severe) obesity due to excess calories; Z68.43 Body mass index [BMI] 50.0-59.9, adult; Z87.442 Personal history of urinary calculi; Z79.899 Other long term (current) drug therapy

== ENCOUNTER 2021-02-21 14:16 | Emergency (ER) | payer OTHER ==
[~2021-02-21] VITALS: Ht 175.3 cm; Wt 158.8 kg
[~2021-02-21 14:16] MED LIST changes: +OZEMPIC0.25 MG/0. SUBQ; +ZANAFLEX4 MG PO
[2021-02-21 14:58] LABS: ABSOLUTE EOSINOPHILS 0.1 thou/uL (0.0-0.7); ABSOLUTE LYMPHOCYTES 1.1 thou/uL (0.8-5.3); ABSOLUTE MONOCYTES 0.5 thou/uL (0.0-1.2); ABSOLUTE NEUTROPHILS 4.9 thou/uL (1.6-8.1); BASOPHILS 0.6 %; EOSINOPHILS 2.2 %; HEMATOCRIT 41.9 % (42.0-52.0); HEMOGLOBIN 13.9 gm/dL (14.0-18.0); LYMPHOCYTES 16.4 %; MCH 28.7 pg (26.0-34.0); MCHC 33.2 g/dL (28.0-37.0); MCV 86.5 fL (80.0-100.0); MONOCYTES 7.4 %; MPV 8.3 fl. (7.2-11.1); NUCLEATED RBCS 0 /100WBC; PLATELET COUNT* 242 thou/uL (150-400); POLYS 73.4 %; RBC 4.84 mil/uL (4.50-6.00); RDW-CV 15.4 % (10.5-14.5); WBC 6.6 thou/uL (4.0-11.0)
[2021-02-21 15:08] LABS: CALCIUM 8.9 mg/dL (8.5-10.1); CREATININE 0.7 mg/dL (0.6-1.3); POTASSIUM 4.2 mmol/L (3.5-5.1)
[2021-02-21 15:12] LABS: ALBUMIN 3.6 g/dL (3.4-5.0); TOTAL BILIRUBIN 0.6 mg/dL (<0.1-1.0); TOTAL PROTEIN 8.3 g/dL (6.4-8.2)
[2021-02-21 15:24] LABS: URINE BILIRUBIN NEGATIVE (Negative); URINE BLOOD NEGATIVE (Negative); URINE CLARITY CLEAR; URINE COLOR YELLOW; URINE GLUCOSE-RANDOM NEGATIVE (Negative); URINE KETONES NEGATIVE (Negative); URINE LEUKOCYTES-REFLEX NEGATIVE (Negative); URINE NITRITE-REFLEX NEGATIVE (Negative); URINE PROTEIN NEGATIVE (Negative)
[2021-02-21] MEDS ORDERED: NORCO5 PO (17:09)
[2021-02-21] MEDS ORDERED: ZOFRAN ODT4 MG PO (17:09)
[2021-02-21] MEDS ORDERED: IBUPROFEN 800800 M1 PO (17:09)
[2021-02-21 17:17] VITALS: BP 119/63
== END 2021-02-21 17:18 | disposition home or self-care (01) ==
LOC: M.ERS 14:16
PROVIDERS: Nurse Practitioner Family
DX: N20.0 Calculus of kidney (principal); H92.01 Otalgia, right ear; E11.9 Type 2 diabetes mellitus without complications; G47.30 Sleep apnea, unspecified; E66.01 Morbid (severe) obesity due to excess calories; Z68.43 Body mass index [BMI] 50.0-59.9, adult; Z87.442 Personal history of urinary calculi

== ENCOUNTER 2021-04-05 14:06 | Emergency (ER) | payer OTHER ==
[~2021-04-05] VITALS: Ht 175.3 cm; Wt 158.8 kg
[~2021-04-05 14:06] MED LIST changes: +NORCO5 PO; +ZOFRAN ODT4 MG PO
[2021-04-05 14:45] LABS: HEMATOCRIT 40.1 % (42.0-52.0); HEMOGLOBIN 13.5 gm/dL (14.0-18.0); MCHC 33.7 g/dL (28.0-37.0); MPV 8.1 fl. (7.2-11.1); NUCLEATED RBCS 0 /100WBC; PLATELET COUNT* 230 thou/uL (150-400); RBC 4.67 mil/uL (4.50-6.00); RDW-CV 15.5 % (10.5-14.5); WBC 7.4 thou/uL (4.0-11.0)
[2021-04-05 14:55] LABS: CALCIUM 8.4 mg/dL (8.5-10.1); CREATININE 0.7 mg/dL (0.6-1.3); POTASSIUM 4.1 mmol/L (3.5-5.1)
[2021-04-05 15:06] LABS: ALBUMIN 3.4 g/dL (3.4-5.0); MAGNESIUM 1.9 mg/dL (1.8-2.4)
[2021-04-05 15:12] LABS: ABSOLUTE BASOPHILS 0.1 thou/uL (0.0-0.2); ABSOLUTE EOSINOPHILS 0.1 thou/uL (0.0-0.7); ABSOLUTE LYMPHOCYTES 0.7 thou/uL (0.8-5.3); ABSOLUTE MONOCYTES 0.4 thou/uL (0.0-1.2); PLATELET ESTIMATE ADEQUATE
[2021-04-05 15:26] LABS: TOTAL BILIRUBIN 0.3 mg/dL (<0.1-1.0); TOTAL PROTEIN 7.8 g/dL (6.4-8.2)
[2021-04-05 18:16] VITALS: BP 147/72
--- NOTE | 2021-04-06 14:53 | EKG ---
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
--- NOTE | 2021-04-06 14:55 | EKG ---
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: : 1965 Requested By: Justin Milian Order Number: [id number] MD: Alessio Schulz Measurements Intervals [place] Rate: 67 P: 14 OR: 221 QRS: 37 QRSD: 87 T: 59 QT: 395 QTc: 417 Interpretive Statements Sinus rhythm Atrial premature complexes Prolonged OR interval Baseline wander in lead(s) V1 Compared to ECG 04/05/2021 14:10:53 Atrial premature complex(es) now present First degree AV block now present Electronically Signed On 04-06-2021 14:55:40 CDT by Alessio Schulz [email or web address] <ELECTRONICALLY SIGNED> By: Alessio Schulz MD, [facility] 04/06/21 1455 1630 1630 Alessio Schulz MD, [facility] /EPI
== END 2021-04-05 18:16 | disposition home or self-care (01) ==
LOC: M.ERS 14:06
PROVIDERS: Emergency Medicine Emergency Medical Services
DX: R07.89 Other chest pain (principal); E11.9 Type 2 diabetes mellitus without complications; I10 Essential (primary) hypertension; F12.90 Cannabis use, unspecified, uncomplicated; E66.01 Morbid (severe) obesity due to excess calories; Z79.899 Other long term (current) drug therapy; Z87.442 Personal history of urinary calculi

== ENCOUNTER 2021-04-07 17:01 | Observation (INO) | payer OTHER ==
[~2021-04-07] VITALS: Ht 175.3 cm; Wt 158.8 kg
[2021-04-07 17:15] VITALS: BP 137/111
[2021-04-07 17:29] LABS: ABSOLUTE BASOPHILS 0.1 thou/uL (0.0-0.2); ABSOLUTE EOSINOPHILS 0.2 thou/uL (0.0-0.7); ABSOLUTE LYMPHOCYTES 1.2 thou/uL (0.8-5.3); ABSOLUTE MONOCYTES 0.6 thou/uL (0.0-1.2); ABSOLUTE NEUTROPHILS 7.1 thou/uL (1.6-8.1); BASOPHILS 0.9 %; EOSINOPHILS 1.8 %; HEMOGLOBIN 14.5 gm/dL (14.0-18.0); MCH 29.5 pg (26.0-34.0); MCHC 34.4 g/dL (28.0-37.0); MCV 85.7 fL (80.0-100.0); MONOCYTES 6.6 %; MPV 8.4 fl. (7.2-11.1); NUCLEATED RBCS 0 /100WBC; PLATELET COUNT* 264 thou/uL (150-400); POLYS 77.7 %; RDW-CV 15.8 % (10.5-14.5); WBC 9.1 thou/uL (4.0-11.0)
[2021-04-07 17:44] LABS: CALCIUM 8.9 mg/dL (8.5-10.1); CREATININE 0.8 mg/dL (0.6-1.3); POTASSIUM 3.9 mmol/L (3.5-5.1)
[2021-04-07 17:49] LABS: ALBUMIN 3.9 g/dL (3.4-5.0); TOTAL BILIRUBIN 0.8 mg/dL (<0.1-1.0); TOTAL PROTEIN 8.4 g/dL (6.4-8.2)
[2021-04-07 21:45] VITALS: BP 142/72
[2021-04-07 21:50] VITALS: BP 131/68
[2021-04-08] VITALS: BP 149/71
[2021-04-08 04:00] VITALS: BP 113/65
--- NOTE | 2021-04-08 04:29 | NUR ---
PATIENT SLEPT AFTER ASSESSMENT COMPLETED. PT SAID WAS IN ER TWO DAYS AGO FOR SYNCOPE AND WAS SENT HOME. PT SAID HE WAS AT WORK AND BEGAN FEELING LIKE EVERYTHING WAS CLOSING IN ON HIM, HE BECAME DIZZY AND DIAPHRETIC. PT DENIES ANY OF THESE THINGS AT THIS TIME. PT EATING TURKEY SANDWICH BOXED LUNCH AT THIS TIME. PT DENIES PAIN/NAUSEA. SALINE LOCK IN LT AC PATENT. 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 FREQUENTLY USED ITEMS AND CALL LIGHT WITHIN REACH. SIDERAILS UPX1. WILL CONTINUE TO MONITOR.
[2021-04-08 04:44] LABS: CREATININE 0.9 mg/dL (0.6-1.3); POTASSIUM 3.7 mmol/L (3.5-5.1)
[2021-04-08 04:56] LABS: ABSOLUTE BASOPHILS 0.1 thou/uL (0.0-0.2); ABSOLUTE EOSINOPHILS 0.2 thou/uL (0.0-0.7); ABSOLUTE LYMPHOCYTES 1.6 thou/uL (0.8-5.3); ABSOLUTE MONOCYTES 0.7 thou/uL (0.0-1.2); ABSOLUTE NEUTROPHILS 5.3 thou/uL (1.6-8.1); EOSINOPHILS 2.6 %; HEMATOCRIT 41.4 % (42.0-52.0); HEMOGLOBIN 13.9 gm/dL (14.0-18.0); LYMPHOCYTES 20.1 %; MCH 28.7 pg (26.0-34.0); MCHC 33.6 g/dL (28.0-37.0); MCV 85.4 fL (80.0-100.0); MONOCYTES 8.6 %; MPV 8.7 fl. (7.2-11.1); NUCLEATED RBCS 0 /100WBC; PLATELET COUNT* 265 thou/uL (150-400); POLYS 67.7 %; RBC 4.85 mil/uL (4.50-6.00); RDW-CV 15.7 % (10.5-14.5); WBC 7.8 thou/uL (4.0-11.0)
[2021-04-08 07:52] VITALS: BP 133/74
[2021-04-08 09:24] LABS: CHOLESTEROL 180 mg/dL (<200); HDL CHOLESTEROL 33 mg/dL (>40); LDL CHOLESTEROL 85 mg/dL (<100); TC:HDL 5.5 Ratio (Not establshd); TRIGLYCERIDE 313 mg/dL (<150); VLDL 63 mg/dL (<40)
[2021-04-08 09:25] LABS: SERUM ASSESSMENT Clear
--- NOTE | 2021-04-08 09:55 | NUR ---
ASSUMED CARE OF PT THIS AM AROUND 0715- VENTURE CAPITAL ANALYST IN PLACE ORDERED, TRACING SR WITH PAC- UPON ASSESSMENT PT NOTED TO BE UP IN BED SIDE CHAIR, WATCHING TV- PT A&O X4- CONT OF B/B- UP AD-TUCKER IN ROOM, STEAEDY GAIT NOTED-LCTA, DENIES SOA ON EXERTION- VSS, O2 SAT 96% ON RA- ABD FIRM/OBESE/NON-TENDER, BS X4 QUADS- LAST BM REPORTED 04/07/21- IV NOTED TO LEFT AC INTACT AND SL- 1-2+ TIGHT BLE EDEMA NOTED- US OF CAROTIDS ORDERED AND COMPLETED THIS AM, AWAITING RESULTS- ECHO ORDERED- EKG ORDERED, COMPLETED AND PLACED ON CHART THIS AM FOR VIEWING-PT DENIES ANY C/O PAIN- CALL LIGHT AND PERONAL BELONGINGS WITH IN REACH- PT MAKES NEEDS KNOWN- ALL NEEDS MET AT THIS TIME
--- NOTE | 2021-04-08 09:58 | EKG ---
[place] [address] ELECTROCARDIOGRAM REPORT Name: IAN POZO Room: [address]#: [id number] Admission: 04/07/21 Attend Phys: Sarthak Neely, Discharge: Date of : 63 Date of Service: 04/07/21 1720 Report #: [id number] THIS REPORT FOR: //name// [facility] ED Test Date: 2021-04-07 Test Time: 17:20:42 Pat Name: IAN POZO Department: Room: [facility] Gender: M Cardiology Clinical Nurse Specialist: JAN : 1965 Requested By: Justin Milian Order Number: [id number] MD: Alessio Schulz Measurements Intervals [place] Rate: 72 P: 37 MN: 183 QRS: 42 QRSD: 91 T: 82 QT: 402 QTc: 440 Interpretive Statements Sinus rhythm Borderline repolarization abnormality Compared to ECG 04/05/2021 16:30:47 Atrial premature complex(es) no longer present First degree AV block no longer present Electronically Signed On 04-08-2021 9:58:24 CDT by Alessio Schulz [email or web address] <ELECTRONICALLY SIGNED> By: Alessio Schulz MD, [facility] 04/08/21 0958 1720 1720 Alessio Schulz MD, [facility] /EPI
[2021-04-08 12:00] VITALS: BP 124/74; BP 125/74; BP 126/68
[2021-04-08 14:29] VITALS: BP 124/74
[2021-04-08] MEDS ORDERED: ADULT ASPIRIN R81 MG PO ×2 (15:27)
[2021-04-08] MEDS ORDERED: LIPITOR 20 MG T20 M1 PO ×2 (15:27)
--- NOTE | 2021-04-10 13:48 | EKG ---
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: DES : 1965 Requested By: Ulices Issa Order Number: [id number] MD: Garrett Feliciano Measurements Intervals [place] Rate: 73 P: 20 OR: 207 QRS: 51 QRSD: 91 T: 62 QT: 436 QTc: 481 Interpretive Statements Sinus rhythm with PACs Borderline prolonged OR interval Borderline prolonged QT interval Baseline wander in lead(s) V1 Compared to ECG 04/07/2021 17:20:42 PACs have appeared Electronically Signed On 04-10-2021 13:47:57 CDT by Garrett Feliciano [email or web address] <ELECTRONICALLY SIGNED> By: Garrett Feliciano MD, [facility] 04/10/21 1347 6 6 Garrett Feliciano MD, [facility] /EPI
== END 2021-04-08 16:00 | disposition home or self-care (01) ==
LOC: M.ERS 17:01 → M.TBA-ER 18:37 → M.2W 21:37
PROVIDERS: Emergency Medicine Emergency Medical Services; Internal Medicine; ADMIT Internal Medicine; ATTEND Internal Medicine
DX: R55 Syncope and collapse (principal); Z20.822 Contact with and (suspected) exposure to COVID-19; R94.31 Abnormal electrocardiogram [ECG] [EKG]; I10 Essential (primary) hypertension; E11.9 Type 2 diabetes mellitus without complications; G47.30 Sleep apnea, unspecified; E66.09 Other obesity due to excess calories; Z68.43 Body mass index [BMI] 50.0-59.9, adult; Z79.82 Long term (current) use of aspirin; Z79.899 Other long term (current) drug therapy

== ENCOUNTER 2021-05-25 16:47 | Emergency (ER) | payer OTHER ==
[~2021-05-25] VITALS: Ht 175.3 cm; Wt 158.8 kg
[~2021-05-25 16:47] MED LIST changes: +ADULT ASPIRIN R81 MG PO; +LIPITOR 20 MG T20 M1 PO
[2021-05-25 17:26] LABS: HEMATOCRIT 40.5 % (42.0-52.0); HEMOGLOBIN 13.8 gm/dL (14.0-18.0); MCH 29.5 pg (26.0-34.0); MCHC 34.1 g/dL (28.0-37.0); MCV 86.5 fL (80.0-100.0); MPV 8.1 fl. (7.2-11.1); NUCLEATED RBCS 0 /100WBC; PLATELET COUNT* 243 thou/uL (150-400); RBC 4.69 mil/uL (4.50-6.00); RDW-CV 15.6 % (10.5-14.5); WBC 7.4 thou/uL (4.0-11.0)
[2021-05-25 17:31] LABS: URINE BILIRUBIN NEGATIVE (Negative); URINE BLOOD NEGATIVE (Negative); URINE CLARITY CLEAR; URINE COLOR YELLOW; URINE GLUCOSE-RANDOM NEGATIVE (Negative); URINE KETONES NEGATIVE (Negative); URINE LEUKOCYTES-REFLEX NEGATIVE (Negative); URINE NITRITE-REFLEX NEGATIVE (Negative); URINE PROTEIN NEGATIVE (Negative)
[2021-05-25 17:34] LABS: CALCIUM 8.1 mg/dL (8.5-10.1); CREATININE 0.7 mg/dL (0.6-1.3); POTASSIUM 3.8 mmol/L (3.5-5.1)
[2021-05-25 17:38] LABS: ALBUMIN 3.6 g/dL (3.4-5.0); TOTAL BILIRUBIN 0.6 mg/dL (<0.1-1.0); TOTAL PROTEIN 7.9 g/dL (6.4-8.2)
[2021-05-25 17:56] LABS: ABSOLUTE EOSINOPHILS 0.2 thou/uL (0.0-0.7); ABSOLUTE LYMPHOCYTES 1.6 thou/uL (0.8-5.3); ABSOLUTE MONOCYTES 0.3 thou/uL (0.0-1.2); ABSOLUTE NEUTROPHILS 5.3 thou/uL (1.6-8.1); ANISOCYTOSIS Occasional; PLATELET ESTIMATE ADEQUATE
[2021-05-25] MEDS ORDERED: FLEXERIL PO ×3 (18:34→19:06)
[2021-05-25] MEDS ORDERED: NAPROSYN500 M1 PO ×3 (18:34→19:06)
[2021-05-25 18:53] VITALS: BP 151/78
== END 2021-05-25 18:54 | disposition home or self-care (01) ==
LOC: M.ERS 16:47
PROVIDERS: Physician Assistant
DX: M54.5 Low back pain (principal); R10.84 Generalized abdominal pain; G47.30 Sleep apnea, unspecified; E11.9 Type 2 diabetes mellitus without complications; E66.01 Morbid (severe) obesity due to excess calories; Z68.43 Body mass index [BMI] 50.0-59.9, adult; Z87.442 Personal history of urinary calculi

== ENCOUNTER 2021-05-29 13:11 | Emergency (ER) | payer OTHER ==
[~2021-05-29] VITALS: Ht 175.3 cm; Wt 158.8 kg
[~2021-05-29 13:11] MED LIST changes: +NAPROSYN500 M1 PO
[2021-05-29 13:42] LABS: URINE BILIRUBIN NEGATIVE (Negative); URINE BLOOD NEGATIVE (Negative); URINE CLARITY CLEAR; URINE COLOR YELLOW; URINE GLUCOSE-RANDOM NEGATIVE (Negative); URINE KETONES NEGATIVE (Negative); URINE LEUKOCYTES-REFLEX NEGATIVE (Negative); URINE NITRITE-REFLEX NEGATIVE (Negative); URINE PROTEIN NEGATIVE (Negative); URINE SPECIFIC GRAVITY 1.015 (1.005-1.030)
[2021-05-29 14:02] LABS: CREATININE 0.7 mg/dL (0.6-1.3); POTASSIUM 4.1 mmol/L (3.5-5.1)
[2021-05-29 14:06] LABS: ABSOLUTE BASOPHILS 0.1 thou/uL (0.0-0.2); ABSOLUTE EOSINOPHILS 0.2 thou/uL (0.0-0.7); ABSOLUTE LYMPHOCYTES 1.2 thou/uL (0.8-5.3); ABSOLUTE MONOCYTES 0.5 thou/uL (0.0-1.2); ABSOLUTE NEUTROPHILS 5.4 thou/uL (1.6-8.1); ALBUMIN 3.6 g/dL (3.4-5.0); BASOPHILS 1.1 %; EOSINOPHILS 3.3 %; HEMATOCRIT 39.6 % (42.0-52.0); HEMOGLOBIN 13.5 gm/dL (14.0-18.0); MCH 29.5 pg (26.0-34.0); MCHC 34.1 g/dL (28.0-37.0); MCV 86.6 fL (80.0-100.0); MONOCYTES 6.9 %; MPV 8.3 fl. (7.2-11.1); NUCLEATED RBCS 0 /100WBC; PLATELET COUNT* 229 thou/uL (150-400); POLYS 72.7 %; RBC 4.57 mil/uL (4.50-6.00); RDW-CV 15.6 % (10.5-14.5); TOTAL BILIRUBIN 0.6 mg/dL (<0.1-1.0); TOTAL PROTEIN 7.7 g/dL (6.4-8.2); WBC 7.4 thou/uL (4.0-11.0)
[2021-05-29] MEDS ORDERED: MEDROLDOSEPACK PO (15:13)
[2021-05-29] MEDS ORDERED: HYDROCODON-ACE1 EAC7 PO (15:53)
[2021-05-29 16:04] VITALS: BP 180/96
== END 2021-05-29 16:05 | disposition home or self-care (01) ==
LOC: M.ERS 13:11
PROVIDERS: Nurse Practitioner Family
DX: M54.41 Lumbago with sciatica, right side (principal); M47.818 Spondylosis without myelopathy or radiculopathy, sacral and sacrococcygeal region; I10 Essential (primary) hypertension; E11.9 Type 2 diabetes mellitus without complications; E66.09 Other obesity due to excess calories; Z87.442 Personal history of urinary calculi

== ENCOUNTER 2021-07-05 13:59 | Emergency (ER) | payer OTHER ==
[~2021-07-05] VITALS: Ht 175.3 cm; Wt 158.8 kg
[2021-07-05 14:53] LABS: URINE BILIRUBIN NEGATIVE (Negative); URINE BLOOD NEGATIVE (Negative); URINE CLARITY CLEAR; URINE COLOR YELLOW; URINE GLUCOSE-RANDOM NEGATIVE (Negative); URINE KETONES NEGATIVE (Negative); URINE LEUKOCYTES-REFLEX NEGATIVE (Negative); URINE NITRITE-REFLEX NEGATIVE (Negative); URINE PROTEIN NEGATIVE (Negative); URINE SPECIFIC GRAVITY >= 1.030 (1.005-1.030); URINE UROBILINOGEN 0.2 E.U./dl (0.2-1.0)
[2021-07-05 15:52] LABS: ABSOLUTE BASOPHILS 0.1 thou/uL (0.0-0.2); ABSOLUTE EOSINOPHILS 0.2 thou/uL (0.0-0.7); ABSOLUTE LYMPHOCYTES 1.4 thou/uL (0.8-5.3); ABSOLUTE MONOCYTES 0.5 thou/uL (0.0-1.2); ABSOLUTE NEUTROPHILS 5.3 thou/uL (1.6-8.1); BASOPHILS 1.1 %; EOSINOPHILS 2.2 %; HEMATOCRIT 41.2 % (42.0-52.0); HEMOGLOBIN 13.8 gm/dL (14.0-18.0); LYMPHOCYTES 18.3 %; MCH 28.7 pg (26.0-34.0); MCHC 33.6 g/dL (28.0-37.0); MCV 85.5 fL (80.0-100.0); MONOCYTES 6.7 %; MPV 8.4 fl. (7.2-11.1); NUCLEATED RBCS 0 /100WBC; PLATELET COUNT* 240 thou/uL (150-400); POLYS 71.7 %; RBC 4.82 mil/uL (4.50-6.00); RDW-CV 15.4 % (10.5-14.5); WBC 7.4 thou/uL (4.0-11.0)
[2021-07-05 15:58] LABS: CALCIUM 8.6 mg/dL (8.5-10.1); CREATININE 0.8 mg/dL (0.6-1.3); POTASSIUM 4.3 mmol/L (3.5-5.1)
[2021-07-05 16:02] LABS: ALBUMIN 3.5 g/dL (3.4-5.0); TOTAL BILIRUBIN 0.5 mg/dL (<0.1-1.0); TOTAL PROTEIN 7.9 g/dL (6.4-8.2)
[2021-07-05] MEDS ORDERED: MEDROLDOSEPACK PO (16:32)
[2021-07-05] MEDS ORDERED: NAPROSYN500 MG PO (16:32)
[2021-07-05] MEDS ORDERED: FLEXERIL PO (16:32)
[2021-07-05 17:00] VITALS: BP 153/87
== END 2021-07-05 17:01 | disposition home or self-care (01) ==
LOC: M.ERS 13:59
PROVIDERS: Nurse Practitioner Family
DX: M54.32 Sciatica, left side (principal); I10 Essential (primary) hypertension; E66.01 Morbid (severe) obesity due to excess calories; E11.9 Type 2 diabetes mellitus without complications; M19.90 Unspecified osteoarthritis, unspecified site; Z79.899 Other long term (current) drug therapy

== ENCOUNTER 2021-07-23 16:33 | Emergency (ER) | payer OTHER ==
[~2021-07-23] VITALS: Ht 175.3 cm; Wt 158.8 kg
[2021-07-23 17:38] LABS: URINE BILIRUBIN NEGATIVE (Negative); URINE BLOOD NEGATIVE (Negative); URINE CLARITY CLEAR; URINE COLOR YELLOW; URINE GLUCOSE-RANDOM NEGATIVE (Negative); URINE KETONES TRACE (Negative); URINE LEUKOCYTES-REFLEX NEGATIVE (Negative); URINE NITRITE-REFLEX NEGATIVE (Negative); URINE PROTEIN NEGATIVE (Negative); URINE SPECIFIC GRAVITY >= 1.030 (1.005-1.030)
[2021-07-23] MEDS ORDERED: IBUPROFEN 800800 M1 PO (17:44)
[2021-07-23] MEDS ORDERED: FLEXERIL PO (17:44)
[2021-07-23 17:56] VITALS: BP 157/77
== END 2021-07-23 17:56 | disposition home or self-care (01) ==
LOC: M.ERS 16:33
PROVIDERS: Emergency Medicine Emergency Medical Services
DX: S83.91XA Sprain of unspecified site of right knee, initial encounter (principal); J02.9 Acute pharyngitis, unspecified; M54.5 Low back pain; I10 Essential (primary) hypertension; E66.01 Morbid (severe) obesity due to excess calories; E11.9 Type 2 diabetes mellitus without complications; M19.90 Unspecified osteoarthritis, unspecified site; Z87.442 Personal history of urinary calculi; X58.XXXA Exposure to other specified factors, initial encounter; Y93.89 Activity, other specified; Y92.89 Other specified places as the place of occurrence of the external cause; Y99.8 Other external cause status

== ENCOUNTER 2021-08-11 19:12 | Emergency (ER) | payer OTHER ==
[~2021-08-11] VITALS: Ht 175.3 cm; Wt 158.8 kg
[2021-08-11 19:42] LABS: URINE BILIRUBIN NEGATIVE (Negative); URINE BLOOD NEGATIVE (Negative); URINE CLARITY CLEAR; URINE COLOR YELLOW; URINE GLUCOSE-RANDOM NEGATIVE (Negative); URINE KETONES TRACE (Negative); URINE LEUKOCYTES-REFLEX NEGATIVE (Negative); URINE NITRITE-REFLEX NEGATIVE (Negative); URINE PROTEIN TRACE (Negative); URINE SPECIFIC GRAVITY >= 1.030 (1.005-1.030)
[2021-08-11 20:01] LABS: ABSOLUTE BASOPHILS 0.1 thou/uL (0.0-0.2); ABSOLUTE EOSINOPHILS 0.2 thou/uL (0.0-0.7); ABSOLUTE LYMPHOCYTES 1.2 thou/uL (0.8-5.3); ABSOLUTE MONOCYTES 0.7 thou/uL (0.0-1.2); ABSOLUTE NEUTROPHILS 5.1 thou/uL (1.6-8.1); BASOPHILS 1.2 %; EOSINOPHILS 3.2 %; HEMATOCRIT 38.1 % (42.0-52.0); HEMOGLOBIN 12.8 gm/dL (14.0-18.0); LYMPHOCYTES 16.3 %; MCHC 33.6 g/dL (28.0-37.0); MCV 86.2 fL (80.0-100.0); MONOCYTES 9.1 %; MPV 8.3 fl. (7.2-11.1); NUCLEATED RBCS 0 /100WBC; PLATELET COUNT* 240 thou/uL (150-400); POLYS 70.2 %; RBC 4.42 mil/uL (4.50-6.00); RDW-CV 15.5 % (10.5-14.5); WBC 7.3 thou/uL (4.0-11.0)
[2021-08-11 20:02] LABS: CALCIUM 8.3 mg/dL (8.5-10.1); CREATININE 0.8 mg/dL (0.6-1.3); POTASSIUM 3.8 mmol/L (3.5-5.1)
[2021-08-11 20:12] LABS: ALBUMIN 3.6 g/dL (3.4-5.0); MAGNESIUM 1.8 mg/dL (1.8-2.4); TOTAL BILIRUBIN 0.5 mg/dL (<0.1-1.0); TOTAL PROTEIN 7.7 g/dL (6.4-8.2)
[2021-08-11] MEDS ORDERED: KLOR-CON 1010 MEQ PO (21:20)
[2021-08-11] MEDS ORDERED: LASIX 40 MG TAB40 MG PO (21:20)
[2021-08-11 21:41] VITALS: BP 147/85
--- NOTE | 2021-08-12 12:53 | EKG ---
[place] [address] ELECTROCARDIOGRAM REPORT Name: IAN POZO Room: [facility]#: [id number] Admission: 08/11/21 Attend Phys: Discharge: 08/11/21 Date of : 63 Date of Service: 08/11/212015 Report #: [id number] THIS REPORT FOR: //name// [facility] ED Test Date: 2021-08-11 Test Time: 20:16:14 Pat Name: IAN CHARLTONNES Department: Room: Gender: Launderer Hand: MS : 1965 Requested By: Yancy Valverde Order Number: [id number] MD: Bon Jules Measurements Intervals [place] Rate: 47 P: 44 NC: 208 QRS: 49 QRSD: 93 T: 58 QT: 442 QTc: 391 Interpretive Statements Sinus bradycardia Baseline wander in lead(s) I,III,aVR,aVL,aVF,V1,V2,V3,V4,V5,V6 Compared to ECG 04/08/2021 09:17:04 Sinus rhythm no longer present Electronically Signed On 08-12-2021 12:53:33 CDT by Bon Jules [email or web address] <ELECTRONICALLY SIGNED> By: Bon Jules MD, FACC 08/12/21 1253 15 15 Bon Jules MD, FACC /EPI
== END 2021-08-11 21:41 | disposition home or self-care (01) ==
LOC: M.ERS 19:12
PROVIDERS: Emergency Medicine
DX: R22.43 Localized swelling, mass and lump, lower limb, bilateral (principal); R00.1 Bradycardia, unspecified; I10 Essential (primary) hypertension; E11.9 Type 2 diabetes mellitus without complications

== ENCOUNTER 2021-08-13 21:49 | Observation (INO) | payer OTHER ==
[~2021-08-13] VITALS: Ht 175.3 cm; Wt 171.9 kg
[~2021-08-13 21:49] MED LIST changes: +KLOR-CON 1010 MEQ PO; +LASIX 40 MG TAB40 MG PO
[2021-08-13 22:00] VITALS: BP 180/92
[2021-08-13 22:25] LABS: ABSOLUTE BASOPHILS 0.1 thou/uL (0.0-0.2); ABSOLUTE EOSINOPHILS 0.2 thou/uL (0.0-0.7); ABSOLUTE LYMPHOCYTES 1.5 thou/uL (0.8-5.3); ABSOLUTE MONOCYTES 0.8 thou/uL (0.0-1.2); ABSOLUTE NEUTROPHILS 5.8 thou/uL (1.6-8.1); BASOPHILS 1.3 %; EOSINOPHILS 2.9 %; HEMATOCRIT 40.8 % (42.0-52.0); HEMOGLOBIN 13.7 gm/dL (14.0-18.0); LYMPHOCYTES 17.5 %; MCH 29.2 pg (26.0-34.0); MCHC 33.7 g/dL (28.0-37.0); MCV 86.6 fL (80.0-100.0); MONOCYTES 9.4 %; MPV 8.4 fl. (7.2-11.1); NUCLEATED RBCS 0 /100WBC; PLATELET COUNT* 258 thou/uL (150-400); POLYS 68.9 %; RBC 4.71 mil/uL (4.50-6.00); RDW-CV 15.6 % (10.5-14.5); WBC 8.4 thou/uL (4.0-11.0)
[2021-08-13 22:34] LABS: CALCIUM 8.7 mg/dL (8.5-10.1); CREATININE 1.1 mg/dL (0.6-1.3); POTASSIUM 3.8 mmol/L (3.5-5.1)
[2021-08-13 22:45] LABS: ALBUMIN 3.4 g/dL (3.4-5.0); MAGNESIUM 1.9 mg/dL (1.8-2.4); TOTAL BILIRUBIN 0.5 mg/dL (<0.1-1.0); TOTAL PROTEIN 7.8 g/dL (6.4-8.2)
[2021-08-14 01:10] VITALS: BP 110/68; BP 137/76
[2021-08-14 04:00] VITALS: BP 112/32
[2021-08-14 09:00] VITALS: BP 84/42
--- NOTE | 2021-08-14 09:26 | EKG ---
[place] [address] ELECTROCARDIOGRAM REPORT Name: IAN POZO Room: [address]#: [id number] Admission: 08/14/21 Attend Phys: Carola Cantu MD Discharge: Date of : 63 Date of Service: 08/13/212157 Report #: [id number] THIS REPORT FOR: //name// [facility] ED Test Date: 2021-08-13 Test Time: 21:58:51 Pat Name: IAN POZO Department: Room: [facility] Gender: M Dictaphone Typist: : 1965 Requested By: Yancy Valverde Order Number: [id number] MD: Alessio Schulz Measurements Intervals [place] Rate: 51 P: 74 SC: 213 QRS: 78 QRSD: 88 T: -54 QT: 423 QTc: 390 Interpretive Statements Sinus bradycardia Prolonged SC interval Repol abnrm suggests ischemia, inferior leads Compared to ECG 08/11/2021 20:16:14 First degree AV block now present Early repolarization now present Possible ischemia now present Electronically Signed On 08-14-2021 9:26:44 CDT by Alessio Schulz [email or web address] <ELECTRONICALLY SIGNED> By: Alessio Schulz MD, FACC 08/14/21925 57 57 Alessio Schulz MD, FACC /EPI
--- NOTE | 2021-08-14 13:31 | CON ---
[address] [address] CONSULTATION Name: IAN POZO Georgette Room: [address] Faisal Alvarado#: [id number] Admission: 08/14/21 Attend Phys: Carola Cantu MD Discharge: Date of : 63 Report #: [id number] THIS REPORT FOR: cc: Vicente Mac Vincent R. DO Blick, David R. MD [facility] ~ cc: Vicente Mac DO DATE OF CONSULTATION: 08/14/2021 CARDIOLOGY CONSULTATION HISTORY OF PRESENT ILLNESS: The patient is a 56-year-old white male who I was asked to see in the hospital today after he was noted to have swollen ankles. The patient has no previous history of heart disease. He has never had a cardiac evaluation. He is not very active at this time. He did have an echocardiogram back in 2019 here at [place] when he complained of shortness of breath that showed ejection fraction of 60%. There was moderate pulmonary hypertension with a PA pressure of almost 70 mmHg. The patient states recently he has had no significant chest pain, increased shortness of breath. He does have occasional swelling of his ankles, but recently it has gotten worse. He actually came to the Emergency Room 3 days ago and was sent home on diuretics. However, this did not seem to help. He came to the hospital yesterday by private vehicle and was admitted for further evaluation and treatment. He denies recent fever, pain in his legs. He has been on no recent long car or plane rides. He denies a history of blood clots. Denies history of palpitations, syncope, lightheadedness. PAST MEDICAL HISTORY: He has had kidney stones removed in the past. He was diagnosed with sleep apnea in the past. He has a history of hypertension, diabetes. CURRENT MEDICATIONS: Include lisinopril. He is on a shot for diabetes. ALLERGIES: He has no known drug allergies. FAMILY HISTORY: Negative for heart disease. SOCIAL HISTORY: He is . He and his live in [place]. 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 No smoking. Does smoke marijuana occasionally. No alcohol. No other illicit drug use. REVIEW OF SYSTEMS: He is overweight, being 5 feet 9 inches, 350 pounds. He has no history of stroke, asthma, liver disease, kidney disease, cancer, psychiatric illness, chronic skin condition, [place] [address] CONSULTATION Name: IAN POZO [address] [id number] Admission: 08/14/21 Attend Phys: Carola Cantu MD Discharge: Date of : 63 Report #: [id number] PHYSICAL EXAMINATION: GENERAL: Revealed a large middle-aged male, lying in bed, appeared in no distress. VITAL SIGNS: He had a blood pressure of 150/70, pulse 70, he is afebrile. HEENT: He was anicteric. Conjunctivae pink. Mucous membranes are moist. NECK: Neck veins are difficult to assess due to obesity. No carotid bruits. Neck is supple. CHEST: Clear to auscultation. HEART: Regular rate and rhythm. No murmur. ABDOMEN: Distended, soft, nontender. No masses were palpated. EXTREMITIES: Had pitting edema up to mid tibial area. Dorsalis pedis pulse cannot be palpated. SKIN: Cool and dry. NEUROLOGIC: Nonfocal. DIAGNOSTIC DATA: His ECG showed sinus bradycardia, nonspecific ST segment changes. His workup, he had a chest x-ray performed yesterday that showed cardiomegaly, no infiltrates. He actually had carotid Doppler studies performed in April that showed plaque formation, no significant stenosis. He had a CT scan of the head this past summer that showed only atrophy. He had a CT scan of the chest using a PE protocol in April that showed no evidence of pulmonary embolus, otherwise clear lung hubbard. LABORATORY DATA: Potassium 3.8, creatinine 1.1. His high sensitivity troponin is 16. BNP 37. In April, cholesterol 180, triglycerides 313, HDL 33, LDL 85. His white blood cell count 8.4, hemoglobin 13.7. His COVID antigen stat test was negative. Urinalysis: Trace protein, many rbc's. IMPRESSION AND RECOMMENDATIONS: 1. Lower extremity edema. Suspect venous insufficiency. Recommend echocardiogram. I would give diuretics. 2. Hypertension. The patient is on an ARELIS inhibitor. 3. Diabetes. 4. Hypertriglyceridemia. Consider fenofibrate. 5. History of kidney stones. 6. Sleep apnea. 7. Pulmonary hypertension. <ELECTRONICALLY SIGNED> By: Alessio Schulz MD, [facility] 08/14/21 1331 1004 1021Davinathaniel Schulz MD, [facility] /nt
--- NOTE | 2021-08-14 14:51 | 2DMMODE ---
[place] [address] 2 D/M-MODE ECHOCARDIOGRAM Name: IAN POZO Georgette Room: [address] [place]#: [id number] Admission: 08/14/21 Attend Phys: Carola Cantu MD Discharge: Date of : 63 Date of Service: 08/14/21 1450 Report #: [id number] THIS REPORT FOR: cc: Vicente Mac,Vicente Vaughn,Alessio Oliveira MD [facility] ~ APPROVED REPORT Study performed: 08/14/2021 13:57:48 EXAM: Comprehensive 2D, Doppler, and color-flow Echocardiogram Patient Location: In-Patient Room #: [facility] Status: routine BSA: 2.71 HR: 64 bpm BP: 847/ mmHg Rhythm: NSR Other Information Study Quality: Good Indications Dyspnea EDEMA 2D Dimensions IVSd: 11.77 (7-11mm) LVOT Diam: 21.82 (18-24mm) LVDd: 56.82 mm PWd: 12.85 (7-11mm) Ascending Ao: 34.29 (22-36mm) LVDs: 35.54 (25-40mm) Aortic Root: 32.91 mm Volumes Left Atrial Volume (Systole) LA ESV Index: 27.60 mL/m2 Aortic Valve AoV Peak Jewel.: 1.53 m/s AO Peak Gr.: 9.41 mmHg LVOT Max P.10 mmHg AO Mean Gr.: 5.67 mmHg LVOT Mean P.79 mmHg LVOT Max V: 1.23 m/s AO V2 VTI: 29.59 cm LVOT Mean V: 0.76 m/s JORDON (VTI): 2.97 cm2 LVOT V1 VTI: 23.47 [place] [address] 2 D/M-MODE ECHOCARDIOGRAM Name: IAN POZO Room: [address] M.R.#: [id number] Admission: 08/14/21 Attend Phys: Carola Cantu MD Discharge: Date of : 63 Date of Service: 08/14/21 1450 Report #: [id number] Mitral Valve E/A Ratio: 1.10 MV Decel. Time: 261.06 ms MV E Max Jewel.: 0.74 m/s MV PHT: 75.71 ms MVA (PHT): 2.91 cm2 TDI E/Lateral E': 6.17 E/Medial E': 7.40 Medial E' Jewel.: 0.10 m/s Lateral E' Jewel.: 0.12 m/s Pulmonary Valve PV Peak Jewel.: 1.23 m/s PV Peak Gr.: 6.10 mmHg Left Ventricle The left ventricle is normal size. There is normal LV segmental wall motion. Mild concentric left ventricular hypertrophy. Left ventricular systolic function is normal. The left ventricular ejection fraction is within the normal range. LVEF is 55-60%. The left ventricular diastolic function is normal. Right Ventricle The right ventricle is normal size. The right ventricular systolic function is normal. Atria The left atrium size is normal. The right atrium size is normal. Aortic Valve The aortic valve is normal in structure. No aortic regurgitation is present. There is no aortic valvular stenosis. Mitral Valve The mitral valve is normal in structure. There is no mitral valve regurgitation noted. No evidence of mitral valve stenosis. Tricuspid Valve The tricuspid valve is normal in structure. Trace tricuspid regurgitation. Unable to assess PA pressure. Pulmonic Valve The pulmonary valve is normal in structure. There is no pulmonic [place] [address] 2 D/M-MODE ECHOCARDIOGRAM Name: IAN POZO Room: [address]#: [id number] Admission: 08/14/21 Attend Phys: Carola Cantu MD Discharge: Date of : 63 Date of Service: 08/14/21 1450 Report #: [id number] Great Vessels The aortic root is normal in size. IVC is normal in size and collapses >50% with inspiration. Pericardium There is no pericardial effusion. <Conclusion> Mild concentric left ventricular hypertrophy. LVEF is 55-60%. <ELECTRONICALLY SIGNED> By: Alessio Schulz MD, FACC 08/14/211449 49 49 Alessio Schulz MD, FACC /INF
[2021-08-14 15:16] VITALS: BP 84/42
== END 2021-08-14 16:08 | disposition home or self-care (01) ==
LOC: M.ERS 21:49 → M.TBA-ER 08-14 00:18 → M.ORTHSURG 08-14 00:18
PROVIDERS: Emergency Medicine; ADMIT Family Medicine; ATTEND Family Medicine
DX: R60.9 Edema, unspecified (principal); Z20.822 Contact with and (suspected) exposure to COVID-19; E11.9 Type 2 diabetes mellitus without complications; I10 Essential (primary) hypertension; E66.01 Morbid (severe) obesity due to excess calories; G47.30 Sleep apnea, unspecified; E78.1 Pure hyperglyceridemia; I27.20 Pulmonary hypertension, unspecified; Z79.82 Long term (current) use of aspirin; Z79.899 Other long term (current) drug therapy

== ENCOUNTER 2021-12-09 12:04 | Emergency (ER) | payer OTHER ==
[~2021-12-09] VITALS: Ht 175.3 cm; Wt 158.8 kg
[2021-12-09] MEDS ORDERED: METFORMIN HCL500 M3 PO (12:12)
[2021-12-09 14:07] LABS: ABSOLUTE BASOPHILS 0.1 thou/uL (0.0-0.2); ABSOLUTE EOSINOPHILS 0.3 thou/uL (0.0-0.7); ABSOLUTE LYMPHOCYTES 1.4 thou/uL (0.8-5.3); ABSOLUTE MONOCYTES 0.8 thou/uL (0.0-1.2); ABSOLUTE NEUTROPHILS 4.9 thou/uL (1.6-8.1); BASOPHILS 0.9 %; EOSINOPHILS 3.3 %; LYMPHOCYTES 18.4 %; MCH 28.9 pg (26.0-34.0); MCHC 33.3 g/dL (28.0-37.0); MCV 86.7 fL (80.0-100.0); MONOCYTES 11.3 %; MPV 8.5 fl. (7.2-11.1); NUCLEATED RBCS 0 /100WBC; PLATELET COUNT* 260 thou/uL (150-400); POLYS 66.1 %; RBC 4.49 mil/uL (4.50-6.00); RDW-CV 16.5 % (10.5-14.5); WBC 7.5 thou/uL (4.0-11.0)
[2021-12-09 14:13] LABS: CALCIUM 8.7 mg/dL (8.5-10.1); CREATININE 1.7 mg/dL (0.6-1.3)
[2021-12-09 14:15] LABS: APTT 26.5 Seconds (25.0-31.3); INR 1.1
[2021-12-09 14:20] LABS: ALBUMIN 3.6 g/dL (3.4-5.0); TOTAL BILIRUBIN 0.8 mg/dL (<0.1-1.0); TOTAL PROTEIN 8.2 g/dL (6.4-8.2)
[2021-12-09 17:56] LABS: URINE BLOOD NEGATIVE (Negative); URINE CLARITY CLEAR; URINE COLOR DARK YELLOW; URINE GLUCOSE-RANDOM NEGATIVE (Negative); URINE KETONES NEGATIVE (Negative); URINE LEUKOCYTES NEGATIVE (Negative); URINE NITRITE NEGATIVE (Negative); URINE PROTEIN TRACE (Negative); URINE SPECIFIC GRAVITY >= 1.030 (1.005-1.030)
[2021-12-09 17:57] LABS: URINE BILIRUBIN 2+ (Negative)
[2021-12-09 17:59] LABS: ICTOTEST (BILI CONFIRMATORY) Negative (Negative)
[2021-12-09 19:14] VITALS: BP 139/65
--- NOTE | 2021-12-10 08:14 | EKG ---
[place] [address] ELECTROCARDIOGRAM REPORT Name: IAN POZO Room: [facility]#: [id number] Admission: 12/09/21 Attend Phys: Discharge: 12/09/21 Date of : 63 Date of Service: 12/09/21 1213 Report #: [id number] THIS REPORT FOR: //name// [facility] ED Test Date: 2021-12-09 Test Time: 12:13:13 Pat Name: IAN CHARLTONNES Department: Room: Gender: Study Lead: WYATT : 1965 Requested By: Zamzam Jade Order Number: [id number] MD: Bon Jules Measurements Intervals [place] Rate: 92 P: 47 FL: 181 QRS: 35 QRSD: 89 T: 67 QT: 354 QTc: 438 Interpretive Statements Sinus rhythm Low voltage, precordial leads Compared to ECG 08/13/2021 21:58:51 Low QRS voltage now present Sinus bradycardia no longer present First degree AV block no longer present Early repolarization no longer present Possible ischemia no longer present Electronically Signed On 12-10-2021 8:13:55 STUDY LEAD by Bon Jules [email or web address] <ELECTRONICALLY SIGNED> By: Bon Jules MD, FACC 12/10/21 0813 121 121 Bon Jules MD, FAC /EPI
== END 2021-12-09 19:14 | disposition home or self-care (01) ==
LOC: M.ERS 12:04
DX: N17.9 Acute kidney failure, unspecified (principal); I51.7 Cardiomegaly; E86.0 Dehydration; N20.0 Calculus of kidney; I10 Essential (primary) hypertension; E11.9 Type 2 diabetes mellitus without complications; K21.9 Gastro-esophageal reflux disease without esophagitis; M19.90 Unspecified osteoarthritis, unspecified site; E66.01 Morbid (severe) obesity due to excess calories; Z68.43 Body mass index [BMI] 50.0-59.9, adult; Z87.442 Personal history of urinary calculi; Z79.899 Other long term (current) drug therapy; Z79.82 Long term (current) use of aspirin